=== PATIENT | female | born 1995 ===

== ENCOUNTER 2020-07-20 07:46 | Emergency (ER) | payer OTHER, SELFPAY ==
--- NOTE | ~2020-07-20 | XR_ITS ---
EXAMINATION: XR CHEST CLINICAL INFORMATION: Chest pain and wheezing COMPARISON: None TECHNIQUE: 2 views of the chest were obtained. FINDINGS: No significant abnormality is noted involving the heart, lungs, mediastinum, bony thorax or soft tissues. XR/XR chest 2V IMPRESSION: Unremarkable examination.
[2020-07-20 07:57] VITALS: BP 154/85; PULSE 66; RESP 16; O2SAT 98; BMI 41.1
--- NOTE | 2020-07-20 08:05 | ECG_ITS ---
Test Reason : SOB Blood Pressure : / mmHG Vent. Rate : 053 BPM Atrial Rate : 053 BPM P-R Int : 158 ms QRS Dur : 076 ms QT Int : 406 ms P-R-T Axes : 060 062 039 degrees QTc Int : 380 ms Sinus bradycardia Otherwise normal ECG When compared with ECG of 23-JUL-2018 00:47, No significant change was found Referred By: Trinidad Laguerre Electronically Signed By:VERNON VELA MD
[2020-07-20 08:19] LABS: MANUAL DIFF FLAG NO
[2020-07-20] MEDS: Albuterol Sulfate (0.083%) 2.5 MG/3 ML VIAL.NEB 5 MG INHALE ×2 (08:20→09:32)
[2020-07-20 08:23] VITALS: PULSE 63
[2020-07-20 08:26] LABS: Basophils Percent Auto 0.3 % (0-2); Eosinophils Absolute Auto 0.4 X10*3/uL (0.0-0.4); Eosinophils Percent Auto 3.6 % (0-4); Hematocrit 40.8 % (37-47); Imm Gran Abs Auto 0.03 X10*3/uL (0.00-0.03); Imm Gran Pct Auto 0.3 % (0.0-0.4); Lymphocytes Absolute Auto 1.9 X10*3/uL (1.2-4.9); Lymphocytes Percent Auto 16.4 % (20-40); Mean Corpuscular HGB Conc 34.3 g/dl (31.0-35.0); Mean Corpuscular Hemoglobin 29.7 pg (27.0-33.0); Mean Corpuscular Volume 86.6 fL (80-98); Monocytes Absolute Auto 0.9 X10*3/uL (0.1-1.2); Monocytes Percent Auto 7.5 % (2-11); Neutrophils Absolute Auto 8.5 X10*3/uL (2.0-8.3); Neutrophils Percent Auto 71.9 % (45-73); Platelet Count 261 X10*3/uL (160-400); Red Blood Count 4.71 X10*6/uL (4.20-5.50); Red Cell Distribution Width 14.3 % (11.0-16.0); White Blood Count 11.8 X10*3/uL (4.8-10.8)
[2020-07-20] MEDS: predniSONE 10 MG TABLET 50 MG PO (08:28)
--- NOTE | 2020-07-20 08:40 | ED.GENADULT ---
HPI - General Adult General Chief complaint: Upper Respiratory Symptoms Stated complaint: Shortness of breath Time Seen by Provider: 07/20/20 07:58 Source: patient Mode of arrival: ambulatory Limitations: no limitations History of Present Illness HPI narrative: 24 y/o female with a history of PCOS who presents to the ER with 3 days of SOB, dry cough, & sinus congestion. She reports yesterday having coughing fits to bad she threw up. She states this morning she started getting chest pain and tightness when she took a deep breath and when she coughed. She is short of breath at rest and with exertion. Pain is across her entire chest. She has had hot flashes on/off but denies fevers. She has no abdominal pain, urinary symptoms. No known exposure to COVID and she is not vaccinated yet. MD complaint: SOB and chest pain Onset (ago): day(s) (3) Location: head, face and chest Radiation: non-radiation Severity: moderate Severity scale (1-10): 7 Quality: aching Pain Consistency: constant (with every breath) Relieving factors: none Exacerbating factors: other (coughing, deep breaths) Associated symptoms: chest pain, cough, malaise and nausea/vomiting Treatments prior to arrival: none Related Data Previous Rx's Medication Instructions Recorded albuterol sulfate 1 inh INHALATION QID PRN #6.7 g 07/20/20 azithromycin [Zithromax Z-José Miguel] See Rx Instructions .ROUTE 07/20/20 .COMPLEX #6 tab hydrocodone-homatropine [Hycodan 5 ml PO Q6H PRN #60 ml 07/20/20 (with homatropine)] prednisone 40 mg PO DAILY #10 tab 07/20/20 Allergies Allergy/AdvReac Type Severity Reaction Status Date / Time No Known Allergies Allergy Unverified 10/30/19 16:35 [No Known Allergies*] Review of Systems Review of Systems: Constitutional: No Fever, No Chills ENT/Mouth: No sore throat, + Rhinorrhea, No Swallowing Difficulty Eyes: No Eye Pain, No Swelling, No Redness Cardiovascular: + Chest Pain, + SOB, No Orthopnea, No Edema Respiratory: + Cough, No Sputum, + Wheezing, + dyspnea Gastrointestinal: + Nausea, + Vomiting, No Diarrhea, No abdominal Pain, No Hematochezia, No Melena Genitourinary: No Dysuria, No Urinary Frequency, No Hematuria Musculoskeletal: No joint pain, No Myalgias Skin: No Skin Lesions, No rash Neuro: No Weakness, No Numbness, No Dizziness, + Headache Psych: No Anxiety/Panic, No Depression Heme/Lymph: No Bruising, No Lymphadenopathy Endocrine: No Polyuria, No Polydipsia [facility] Past Medical History Medical History (Updated 07/20/20 @ 11:07 by RIYA Mary) No known health problems Social History Social History Advance Directives: No Advance Directives Information Provided: No Physical Exam Vital Signs: Vital Signs: Last Vital Signs Pulse 70 07/20/20 09:36 Resp 18 07/20/20 09:36 BP 126/80 07/20/20 09:36 Pulse Ox 98 07/20/20 09:36 Body Mass Index 41.1 Appearance: Alert. Oriented X3. No acute distress. Eyes: Pupils equal, round and reactive to light. ENT: Pharynx normal. Neck: Normal inspection. Neck supple. CVS: Normal heart rate and rhythm. Pulses normal. Respiratory: No respiratory distress. Breath sounds with diffuse expiratory wheezing throughout, scattered rhonchi. Abdomen: Soft and nontender. +BS x4 Skin: Skin warm and dry. Normal skin color. Normal skin turgor. No rashes. Extremities: No lower extremity edema. Negative Adalberto's sign. Neuro: Oriented X 3. No motor deficit. No sensory deficit. Course Course Course Narrative: 24 y/o female with history of PCOS presenting with cough, SOB and chest pain. She appears well and is not in any respiratory distress but she is diffusely wheezy. No history of asthma per her report. Will get CXR, COVID swab. EKG and labs. Will give dose of prednisone and albuterol neb. Reevaluation(s) Reevaluation #1: Improved after neb but some wheezing persists. CXR delayed for test. Troponin negative. COVID negative. Reevaluation #2: CXR is clear. Her lung sounds are improved. She feels improved. She is stable for discharge home with treatment for bronchitis. RT provided inhaler education and patient encouraged to f/u with PCP and get PFTs. Medical Decision Making Lab Data Result diagrams: 07/20/20 08:15 07/20/20 08:15 Labs: Lab Results 07/20/20 07/20/20 07/20/20 Range/Units 08:15 08:15 08:15 WBC 11.8 H (4.8-10.8) X10*3/uL RBC 4.71 (4.20-5.50) X10*6/uL Hgb 14.0 (12.0-16.0) g/dl Hct 40.8 (37-47) % MCV 86.6 (80-98) fL MCH 29.7 (27.0-33.0) pg MCHC 34.3 (31.0-35.0) g/dl RDW 14.3 (11.0-16.0) % Plt Count 261 (160-400) X10*3/uL MPV 11.0 (9.4-12.3) fL Immature Gran % (Auto) 0.3 (0.0-0.4) % Neut % (Auto) 71.9 (45-73) % Lymph % (Auto) 16.4 L (20-40) % [place] % (Auto) 7.5 (2-11) % Eos % (Auto) 3.6 (0-4) % Baso % (Auto) 0.3 (0-2) % Lymph # (Auto) 1.9 (1.2-4.9) X10*3/uL [place] # (Auto) 0.9 (0.1-1.2) X10*3/uL Eos # (Auto) 0.4 (0.0-0.4) X10*3/uL Baso # (Auto) 0.0 (0.0-0.2) X10*3/uL Abs Immat Gran (auto) 0.03 (0.00-0.03) X10*3/uL Absolute Neuts (auto) 8.5 H (2.0-8.3) X10*3/uL Absolute Nucleated RBC 0.000 (0.0-0.012) X10*3/uL Nucleated RBC % (auto) 0.0 (0.0-0.2) /100WBC Sodium 138 (135-145) mmol/L Potassium 4.0 (3.3-5.1) mmol/L Chloride 108 (96-108) mmol/L Carbon Dioxide 23 (22-29) mmol/L Anion Gap 11 L (12-20) BUN 13 (9-16) mg/dL Creatinine 0.82 (0.5-1.4) mg/dL Estim Creat Clear Calc 128.6 Estimated GFR > 60 Random Glucose 111 (60-115) mg/dL Calcium 9.4 (8.4-10.2) mg/dL Troponin I High Sens < 3.5 (<3.5-17.0) ng/L Urine Test (NEGATIVE) COVID-19 ([facility]) (Negative) COVID-19 Clin Com 07/20/20 07/20/20 Range/Units 08:27 09:42 WBC (4.8-10.8) X10*3/uL RBC (4.20-5.50) X10*6/uL Hgb (12.0-16.0) g/dl Hct (37-47) % MCV (80-98) fL MCH (27.0-33.0) pg MCHC (31.0-35.0) g/dl RDW (11.0-16.0) % Plt Count (160-400) X10*3/uL MPV (9.4-12.3) fL Immature Gran % (Auto) (0.0-0.4) % Neut % (Auto) (45-73) % Lymph % (Auto) (20-40) % [place] % (Auto) (2-11) % Eos % (Auto) (0-4) % Baso % (Auto) (0-2) % Lymph # (Auto) (1.2-4.9) X10*3/uL [place] # (Auto) (0.1-1.2) X10*3/uL Eos # (Auto) (0.0-0.4) X10*3/uL Baso # (Auto) (0.0-0.2) X10*3/uL Abs Immat Gran (auto) (0.00-0.03) X10*3/uL Absolute Neuts (auto) (2.0-8.3) X10*3/uL Absolute Nucleated RBC (0.0-0.012) X10*3/uL Nucleated RBC % (auto) (0.0-0.2) /100WBC Sodium (135-145) mmol/L Potassium (3.3-5.1) mmol/L Chloride (96-108) mmol/L Carbon Dioxide (22-29) mmol/L Anion Gap (12-20) BUN (9-16) mg/dL Creatinine (0.5-1.4) mg/dL Estim Creat Clear Calc Estimated GFR Random Glucose (60-115) mg/dL Calcium (8.4-10.2) mg/dL Troponin I High Sens (<3.5-17.0) ng/L Urine Test NEGATIVE (NEGATIVE) COVID-19 ([facility]) Negative (Negative) COVID-19 Clin Com See Note ECG Data Attestation: I personally reviewed and interpreted this ECG as follows: Interpretation: Sinus bradycardia, HR 53 bpm, normal ID interval, no ST depressions or elevations Critical Care Time Critical Care Time Attestation: Discharge Plan Discharge Clinical Impression: Bronchitis Patient Disposition: Home, Self-Care Instructions: Acute Bronchitis (ED) Additional Instructions: You lab workup was unremarkable. Your chest x-ray and COVID tests were negative. Take the prescribed medications as directed. Follow up with a primary care provider for follow up. Recommend Pulmonary Function Tests to assess for possible asthma. If your symptoms get worse come back to the ER for further evaluation. Prescriptions: New albuterol sulfate 90 mcg/actuation HFA aerosol inhaler 1 inh inhalation QID PRN (Reason: shortness of breath or wheezing) Qty: 6.7 RF: 0 azithromycin [Zithromax Z-José Miguel] 250 mg tablet See Rx Instructions .ROUTE .COMPLEX Qty: 6 RF: 0 prednisone 20 mg tablet 40 mg PO DAILY Qty: 10 RF: 0 hydrocodone-homatropine [Hycodan (with homatropine)] 5-1.5 mg/5 mL syrup 5 ml PO Q6H PRN (Reason: cough) Qty: 60 RF: 0 Referrals: Rocco Sosa MD [Physician] - 1 week (wheezing)
[2020-07-20 08:43] LABS: Anion Gap 11 (12-20); Blood Urea Nitrogen 13 mg/dL (9-16); Calcium 9.4 mg/dL (8.4-10.2); Carbon Dioxide 23 mmol/L (22-29); Chloride 108 mmol/L (96-108); Creatinine Clr Calc Pharmacy 128.6; Estimated Glomerular Filt Rate > 60; Glucose Random 111 mg/dL (60-115); Sodium 138 mmol/L (135-145)
[2020-07-20 08:49] LABS: Troponin-I High Sensitivity < 3.5 ng/L (<3.5-17.0)
[2020-07-20 09:01] LABS: COVID-19 Test Negative (Negative)
[2020-07-20 09:32] VITALS: PULSE 71; O2SAT 98
[2020-07-20 09:36] VITALS: BP 126/80; PULSE 70; RESP 18; O2SAT 98
[2020-07-20 09:55] LABS: UPreg QC Valid YES; Urine Pregnancy NEGATIVE (NEGATIVE)
[2020-07-20] MEDS: Albuterol Sulfate 90 MCG 8 GM INHALER 2 PUFF INHALE (11:42)
[2020-07-20 11:45] VITALS: PULSE 68; O2SAT 98
== END 2020-07-20 12:00 | disposition home or self-care (01) ==
PROVIDERS: Physician Assistant; Emergency Provider Emergency Medicine
DX: J20.9 Acute bronchitis, unspecified (principal); Z20.822 Contact with and (suspected) exposure to COVID-19
CPT/HCPCS: 36415; 71046; 80048; 81025; 84484; 85025; 87635; 93005; 94640; 94644; 94645; 99284; 99285

== ENCOUNTER → 2020-07-28 09:35 | Outpatient (BNVA) | payer OTHER, SELFPAY | PROVIDERS: Visit Provider Hospitalist | DX: J40 Bronchitis, not specified as acute or chronic (principal); J45.41 Moderate persistent asthma with (acute) exacerbation; R05 Cough | CPT/HCPCS: 96372; J2930 ==

== ENCOUNTER 2022-10-12 08:59 | Emergency (ER) | payer MEDICAID, SELFPAY ==
--- NOTE | ~2022-10-12 | CT_ITS ---
EXAMINATION: CT ABDOMEN AND PELVIS WITH CONTRAST CLINICAL INFORMATION: Right lower quadrant pain. COMPARISON: None available. TECHNIQUE: Multidetector volumetric images were obtained from the superior aspect of the liver through the pubic symphysis following administration 85 mL of Omnipaque 350 intravenous contrast. Sagittal and coronal reformatted images were obtained on the technologist's workstation. Oral contrast: No This CT examination was performed using dose optimization techniques as appropriate, variously including the following: *Automated exposure control *Adjustment of mA and/or kV according to patient size (this includes techniques or standardized protocols for targeted exams where dose is matched to indication/reason for exam; i.e. extremities or head) *Use of iterative reconstruction technique DLP: 855 mGy-cm FINDINGS: LUNG BASES: Peribronchial groundglass opacities in the left lower lobe. LIVER, GALLBLADDER, AND BILIARY TREE: The liver is normal in size and contour. No focal hepatic lesion or biliary ductal dilatation is present. The gallbladder is unremarkable with no evidence of radiopaque gallstones, gallbladder wall thickening, or obvious pericholecystic inflammatory changes. PANCREAS: No ductal dilatation. SPLEEN: Not enlarged. ADRENAL GLANDS: No adrenal mass. KIDNEYS AND URETERS: The kidneys are symmetric in size and enhancement. No hydronephrosis or perinephric stranding. BLADDER: Unremarkable. GASTROINTESTINAL TRACT: Small and large bowel loops are of normal caliber. No small bowel obstruction. Appendix is within normal limits. ABDOMINAL WALL: No significant hernia is appreciated. LYMPH NODES: No bulky abdominal or pelvic lymphadenopathy. VASCULAR: Normal caliber abdominal aorta. PELVIC VISCERA: Please see separately dictated pelvic ultrasound report. OSSEOUS STRUCTURES: No destructive bone lesions. CT/CT abdomen pelvis w IV con IMPRESSION: Peribronchial groundglass opacities in the left lower lobe. This may represent acute infectious or inflammatory pneumonia. Advise clinical correlation. No acute abnormality in the abdomen or pelvis.
--- NOTE | ~2022-10-12 | US_ITS ---
EXAMINATION: US PELVIS CLINICAL INFORMATION: History of PCOS. Right lower quadrant pain. Irregular menses. COMPARISON: 01/31/2019 TECHNIQUE: Ultrasound of the pelvis is performed using both transabdominal and transvaginal transducers along with Doppler. Transvaginal imaging is performed due to inadequate visualization transabdominally. FINDINGS: Uterus: The uterus is anteverted. Uterine echotexture is heterogeneous. The uterus measures 7.1 x 3.1 x 3.8 cm. There are cervical nabothian cysts. The endometrial stripe measures 0.8 cm in thickness. There is a filling defect measuring 0.5 x 0.4 x 0.6 cm. Adnexa: Both ovaries are visualized. There is normal color flow to the adnexa. There is no pelvic ascites or fluid collection. Right ovary measures 4.3 x 2.8 x 2.6 cm. Right ovarian volume measures 16.4 mL. Left ovary measures 3.5 x 2.5 x 3.1 cm. Left ovarian volume measures 14.2 mL. US/US pelvic and transvaginal IMPRESSION: Increased ovarian volume. Focal filling defect within the endometrium measuring 0.5 x 0.4 x 0.6 cm. This could represent a submucosal fibroid versus less likely endometrial polyp.
[2022-10-12 09:03] VITALS: BP 138/80; PULSE 73; RESP 12; TEMP 36.7; O2SAT 94; BMI 39.5
--- NOTE | 2022-10-12 09:14 | ED_ITS ---
HPI - Female Genitourinary General Chief complaint: OB Stated complaint: ovary pain/ lower back/ leg pain Time Seen by Provider: 10/12/22 09:13 Source: patient Mode of arrival: ambulatory Limitations: no limitations History of Present Illness HPI Narrative: 26-year-old female with history of PCOS presents with right lower quadrant abdominal pain/ pelvic pain. Symptoms started several days ago. The pain is constant getting progressively worse. The pain is currently a level 7/10. There is worsening associated with movement, twisting but also can worsen without any inciting event. She has had nausea but no vomiting. She denies any urinary frequency, urgency or dysuria. She denies any vaginal bleeding or discharge. Her menstrual cycles have been a little bit off however, she does have history of PCOS and just stop the NuvaRing. patient denies any fevers or chills. She denies any diarrhea constipation. She denies any history of pain similar to this in the past. Related Data Previous Rx's Medication Instructions Recorded albuterol sulfate 90 mcg/actuation 1 inh inhalation QID PRN shortness 07/20/20 aerosol inhaler of breath or wheezing #6.7 grams azithromycin 250 mg tablet See Rx Instructions PO .COMPLEX #6 07/20/20 (Zithromax Z-José Miguel) tabs hydrocodone-homatropine 5 mg-1.5 5 ml PO Q6H PRN cough #60 mL 07/20/20 mg/5 mL oral syrup (Hycodan (with homatropine)) prednisone 20 mg tablet 40 mg PO DAILY #10 tabs 07/20/20 albuterol sulfate 0.63 mg/3 mL 0.63 mg (3 mL) inhalation QID PRN 07/21/20 solution for nebulization shortness of breath or wheezing #75 mL albuterol sulfate 2.5 mg/3 mL 2.5 mg (3 mL) inhalation Q4H PRN 07/28/20 (0.083 %) solution for nebulization shortness of breath or wheezing 30 days #180 mL doxycycline hyclate 100 mg capsule 100 mg PO BID 10 days #20 caps 07/28/20 prednisone 20 mg tablet 20 mg PO DAILY 10 days #15 tabs 07/28/20 cyclobenzaprine 10 mg tablet 10 mg PO TID PRN muscle spasm #10 08/31/23 tabs meloxicam 15 mg tablet 15 mg PO DAILY #10 tabs 10/12/22 Allergies Allergy/AdvReac Type Severity Reaction Status Date / Time No Known Allergies Allergy Verified 07/28/20 09:59 [No Known Allergies*] Review of Systems Review of Systems: CONSTITUTIONAL: Denies weight loss, fever and chills. HEENT: Denies changes in vision and hearing. RESPIRATORY: Denies SOB and cough. CV: Denies palpitations no CP. GI: + abdominal pain, nausea,- vomiting and diarrhea. : Denies dysuria and urinary frequency. MSK: Denies myalgia and joint pain. SKIN: Denies rash and pruritus. NEUROLOGICAL: Denies headache and syncope. PSYCHIATRIC: Denies recent changes in mood. Denies anxiety and depression. All other ROS are negative unless in HPI PMFSH Past Medical History Medical History Asthma exacerbation Cough No known health problems Social History Social History Substance Use Type: Marijuana Advance Directives: No Advance Directives Information Provided: No Physical Exam Vital Signs: Vital Signs: Last Vital Signs Temp 98.1 F 10/12/22 09:03 Pulse 65 10/12/22 10:53 Resp 15 10/12/22 10:53 BP 131/71 10/12/22 10:53 Pulse Ox 97 10/12/22 10:53 O2 Del Method Room Air 10/12/22 10:53 BMI result Body Mass Index 39.5 GEN: Well developed, no acute distress, alert, oriented HEENT: Normocephalic, atraumatic, normal external ears, nose appears normal, no oropharyngeal edema or exudates Eyes: Normal to appearance Neck: Supple, no lymphadenopathy Respiratory: Talks in complete sentences, no respiratory distress, clear to auscultation bilaterally Cardiovascular: Regular rate and rhythm, no murmurs rubs or gallops Abdomen: Soft, Right lower quadrant tenderness, nondistended, no guarding, no rebound Back: No CVA tenderness Extremities: No clubbing cyanosis or edema Neurologic: No focal neurologic deficits, cranial nerves 2-12 intact, strength is 5/5 bilaterally Skin: No rash Course Course Course Narrative: it is 1134. The workup is complete. Ultrasound identified no large ovarian cyst or torsion. CT scan denied identify any appendicitis or other possible cause of her symptoms. Differential diagnosis at this point could include corinne ropathic versus musculoskeletal pain or functional bowel related issue. At this time, place the patient on anti-inflammatory pain medications, Tylenol and a muscle relaxer. She can follow-up with her primary care provider or OBGYN within the coming days. She can return for any worsening or concerning symptoms. Medications Administered Discontinued Medications Generic Name Dose Route Start Last Admin Trade Name [place] PRN Reason Stop Dose Admin Sodium Chloride 1,000 mls @ 999 mls/hr 10/12/22 09:45 10/12/22 10:02 Ns IV 10/12/22 10:45 999 mls/hr .Q1H1M AISHA Administration Iohexol 100 ml 10/12/22 10:49 10/12/22 10:49 Iohexol 350 Mg/Ml 100 Ml Infus..Btl IV 10/12/22 10:50 85 ml ONCE ONE Administration Ketorolac Tromethamine 15 mg 10/12/22 09:41 10/12/22 10:02 Ketorolac Tromethamine 15 Mg/Ml Vial IVPUSH 10/12/22 09:42 15 mg ONCE ONE Administration Lorazepam 1 mg 10/12/22 11:11 10/12/22 11:16 Lorazepam 1 Mg Tablet PO 10/12/22 11:12 1 mg ONCE ONE Administration Ondansetron HCl 4 mg 10/12/22 09:41 10/12/22 10:02 Ondansetron Hcl 4 Mg/2 Ml Vial IVPUSH 10/12/22 09:42 4 mg ONCE ONE Administration Medical Decision Making Medical Decision Making [facility] Narrative: 26-year-old female presents with right related quadrant abdominal pain. Differential diagnosis includes appendicitis, diverticulitis, colitis, IBD, IBS, torsion, ovarian cyst, epiploic appendagitis, mesenteric adenitis, UTI, pyelonephritis. Examination revealed tenderness in the right lower quadrant without rebound or guarding. There is no CVA tenderness. Will obtain a CT scan to rule out appendicitis. Will obtain an ultrasound to rule out torsion/ovarian cyst. Will provide patient with analgesia in the meantime. Differential Diagnosis Differential Diagnoses: The differential diagnosis associated with the present ation includes ( See above) Admission/Observation Consideration of admission/observation: Escalation of care including admission/observation considered Lab Data [facility] Lab Attestation statement: I reviewed the patient's lab results. 10/12/22 09:58 10/12/22 09:58 Labs: Lab Results 10/12/22 10/12/22 10/12/22 Range/Units 09:58 09:58 10:05 WBC 14.2 H (4.8-10.8) X10*3/uL RBC 5.32 (4.20-5.50) X10*6/uL Hgb 15.9 (12.0-16.0) g/dl Hct 46.0 (37.0-47.0) % MCV 86.5 (80.0-98.0) fL MCH 29.9 (27.0-33.0) pg MCHC 34.6 (31.0-35.0) g/dl RDW 14.5 (11.0-16.0) % Plt Count 321 (160-400) X10*3/uL MPV 10.9 (9.4-12.3) fL Immature Gran % (Auto) 0.4 (0.0-0.4) % Neut % (Auto) 70.8 (45-73) % Lymph % (Auto) 19.6 L (20-40) % [place] % (Auto) 4.9 (2-11) % Eos % (Auto) 3.9 (0-4) % Baso % (Auto) 0.4 (0-2) % Lymph # (Auto) 2.8 (1.2-4.9) X10*3/uL [place] # (Auto) 0.7 (0.1-1.2) X10*3/uL Eos # (Auto) 0.6 H (0.0-0.4) X10*3/uL Baso # (Auto) 0.1 (0.0-0.2) X10*3/uL Abs Immat Gran (auto) 0.05 H (0.00-0.03) X10*3/uL Absolute Neuts (auto) 10.0 H (2.0-8.3) x10*3/uL Absolute Nucleated RBC 0.000 (0.0-0.012) X10*3/uL Nucleated RBC % (auto) 0.0 (0.0-0.2) /100WBC Sodium 139 (135-145) mmol/L Potassium 4.0 (3.3-5.1) mmol/L Chloride 106 (96-108) mmol/L Carbon Dioxide 23 (22-29) mmol/L Anion Gap 14 (12-20) BUN 14 (9-16) mg/dL Creatinine 0.85 (0.5-1.4) mg/dL Estim Creat Clear Calc 119.0 Estimated GFR > 60 Random Glucose 104 (60-115) mg/dL Calcium 9.9 (8.4-10.2) mg/dL Total Bilirubin 0.5 (0.0-1.0) mg/dL AST 19 (5-31) U/L ALT 17 (0-31) U/L Alkaline Phosphatase 110 (39-117) U/L Total Protein 7.8 (6.5-8.0) g/dL Albumin 4.3 (3.5-5.0) g/dL Urine Color Yellow Urine Appearance Hazy Urine pH 6.0 (5.0-9.0) Ur Specific [place] 1.020 (1.005-1.025) Urine Protein Negative (Neg-Trace) mg/dL Urine Glucose (UA) Negative (Negative) mg/dL Urine Ketones Negative (Negative) mg/dL Urine Blood Negative (Negative) Urine Nitrite Negative (Negative) Ur Leukocyte Esterase Negative (Negative) Urine Test (NEGATIVE) 10/12/22 Range/Units 10:05 WBC (4.8-10.8) X10*3/uL RBC (4.20-5.50) X10*6/uL Hgb (12.0-16.0) g/dl Hct (37.0-47.0) % MCV (80.0-98.0) fL MCH (27.0-33.0) pg MCHC (31.0-35.0) g/dl RDW (11.0-16.0) % Plt Count (160-400) X10*3/uL MPV (9.4-12.3) fL Immature Gran % (Auto) (0.0-0.4) % Neut % (Auto) (45-73) % Lymph % (Auto) (20-40) % [place] % (Auto) (2-11) % Eos % (Auto) (0-4) % Baso % (Auto) (0-2) % Lymph # (Auto) (1.2-4.9) X10*3/uL [place] # (Auto) (0.1-1.2) X10*3/uL Eos # (Auto) (0.0-0.4) X10*3/uL Baso # (Auto) (0.0-0.2) X10*3/uL Abs Immat Gran (auto) (0.00-0.03) X10*3/uL Absolute Neuts (auto) (2.0-8.3) x10*3/uL Absolute Nucleated RBC (0.0-0.012) X10*3/uL Nucleated RBC % (auto) (0.0-0.2) /100WBC Sodium (135-145) mmol/L Potassium (3.3-5.1) mmol/L Chloride (96-108) mmol/L Carbon Dioxide (22-29) mmol/L Anion Gap (12-20) BUN (9-16) mg/dL Creatinine (0.5-1.4) mg/dL Estim Creat Clear Calc Estimated GFR Random Glucose (60-115) mg/dL Calcium (8.4-10.2) mg/dL Total Bilirubin (0.0-1.0) mg/dL AST (5-31) U/L ALT (0-31) U/L Alkaline Phosphatase (39-117) U/L Total Protein (6.5-8.0) g/dL Albumin (3.5-5.0) g/dL Urine Color Urine Appearance Urine pH (5.0-9.0) Ur Specific [place] (1.005-1.025) Urine Protein (Neg-Trace) mg/dL Urine Glucose (UA) (Negative) mg/dL Urine Ketones (Negative) mg/dL Urine Blood (Negative) Urine Nitrite (Negative) Ur Leukocyte Esterase (Negative) Urine Test NEGATIVE (NEGATIVE) Independent Interpretation I performed an independent interpretation of an: Ultrasound ( pelvis: No t orsion) and CT Scan ( abdomen pelvis: No acute findings) Radiology Impression Discussion of test interpretation with radiology: I have reviewed the ra diologist's reading. Radiologist Impression: US/US pelvic and transvaginal IMPRESSION: Increased ovarian volume. ? Focal filling defect within the endometrium measuring 0.5 x 0.4 x 0.6 cm. This could represent a submucosal fibroid versus less likely endometrial polyp. Dictated By: Terry Ivan MD Signed By: <Electronically signed by Terry Ivan MD in [facility]> 10/12/[address]/CT abdomen pelvis w IV con IMPRESSION: Peribronchial groundglass opacities in the left lower lobe. This may represent acute infectious or inflammatory pneumonia. Advise clinical correlation. ? No acute abnormality in the abdomen or pelvis. Dictated By: Terry Ivan MD Signed By: <Electronically signed by Terry Ivan MD in [facility]> 10/12/22 1113 Prescription Management I considered prescription management with: Pain Medication and Antibiotic Chronic Conditions Patient?s care impacted by: Other ( PCOS) Discharge Plan Discharge Clinical Impression: Right lower quadrant abdominal pain Patient Disposition: Home, Self-Care Instructions: Abdominal Pain (ED), Pelvic Pain (ED) Prescriptions: New meloxicam 15 mg tablet 15 mg PO DAILY Qty: 10 0RF cyclobenzaprine 10 mg tablet 10 mg PO TID PRN (Reason: muscle spasm) Qty: 10 0RF No Action albuterol sulfate 90 mcg/actuation HFA aerosol inhaler 1 inh inhalation QID PRN (Reason: shortness of breath or wheezing) Qty: 6.7 0RF azithromycin [Zithromax Z-José Miguel] 250 mg tablet See Rx Instructions .ROUTE .COMPLEX Qty: 6 0RF Rx Instructions: take 500 mg today (day 1), then 250 mg for 4 days (days 2-5) prednisone 20 mg tablet 40 mg PO DAILY Qty: 10 0RF hydrocodone-homatropine [Hycodan (with homatropine)] 5-1.5 mg/5 mL syrup 5 ml PO Q6H PRN (Reason: cough) Qty: 60 0RF albuterol sulfate 0.63 mg/3 mL solution for nebulization 0.63 mg inhalation QID PRN (Reason: shortness of breath or wheezing) Qty: 75 0RF albuterol sulfate 2.5 mg /3 mL (0.083 %) solution for nebulization 2.5 mg inhalation Q4H PRN (Reason: shortness of breath or wheezing) 30 Days Qty: 180 11RF prednisone 20 mg tablet 20 mg PO DAILY 10 Days Qty: 15 0RF Rx Instructions: Take 2 tabs daily x 5 days, then 1 tablet daily x 5 days doxycycline hyclate 100 mg capsule 100 mg PO BID 10 Days Qty: 20 0RF Referrals: Physician,Unknown J [Primary Care Provider] - (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
[2022-10-12 10:02] LABS: MANUAL DIFF FLAG NO
[2022-10-12] MEDS: Ketorolac Tromethamine 15 MG/ML VIAL IVPUSH (10:02)
[2022-10-12] MEDS: ondansetron HCL 4 MG/2 ML VIAL IVPUSH (10:02)
[2022-10-12] MEDS: 0.9 % Sodium Chloride 1,000 ML 999 ML IV (10:02)
[2022-10-12 10:05] LABS: Basophils Absolute Auto 0.1 X10*3/uL (0.0-0.2); Basophils Percent Auto 0.4 % (0-2); Eosinophils Absolute Auto 0.6 X10*3/uL (0.0-0.4); Eosinophils Percent Auto 3.9 % (0-4); Hemoglobin 15.9 g/dl (12.0-16.0); Imm Gran Abs Auto 0.05 X10*3/uL (0.00-0.03); Imm Gran Pct Auto 0.4 % (0.0-0.4); Lymphocytes Absolute Auto 2.8 X10*3/uL (1.2-4.9); Lymphocytes Percent Auto 19.6 % (20-40); Mean Corpuscular HGB Conc 34.6 g/dl (31.0-35.0); Mean Corpuscular Hemoglobin 29.9 pg (27.0-33.0); Mean Corpuscular Volume 86.5 fL (80.0-98.0); Mean Platelet Volume 10.9 fL (9.4-12.3); Monocytes Absolute Auto 0.7 X10*3/uL (0.1-1.2); Monocytes Percent Auto 4.9 % (2-11); Neutrophils Percent Auto 70.8 % (45-73); Platelet Count 321 X10*3/uL (160-400); Red Blood Count 5.32 X10*6/uL (4.20-5.50); Red Cell Distribution Width 14.5 % (11.0-16.0); White Blood Count 14.2 X10*3/uL (4.8-10.8)
[2022-10-12 10:17] LABS: Alanine Aminotransferase 17 U/L (0-31); Albumin Level 4.3 g/dL (3.5-5.0); Alkaline Phosphatase 110 U/L (39-117); Anion Gap 14 (12-20); Aspartate Amino Transferase 19 U/L (5-31); Bilirubin Total 0.5 mg/dL (0.0-1.0); Blood Urea Nitrogen 14 mg/dL (9-16); Calcium 9.9 mg/dL (8.4-10.2); Carbon Dioxide 23 mmol/L (22-29); Chloride 106 mmol/L (96-108); Estimated Glomerular Filt Rate > 60; Glucose Random 104 mg/dL (60-115); Sodium 139 mmol/L (135-145); Total Protein 7.8 g/dL (6.5-8.0)
[2022-10-12 10:18] LABS: Appearance Urine Hazy; Color Urine Yellow; Glucose Urine UA Negative (Negative); Leukocyte Esterase Urine Negative (Negative); Nitrite Urine Negative (Negative); Urine Blood Negative (Negative); Urine Ketones Negative (Negative); Urine Protein Negative (Neg-Trace)
[2022-10-12 10:19] LABS: UPreg QC Valid YES; Urine Pregnancy NEGATIVE (NEGATIVE)
[2022-10-12] MEDS: iohexoL 350 MG/ML 100 ML INFUS..BTL IV (10:49)
[2022-10-12 10:53] VITALS: BP 131/71; PULSE 65; RESP 15; O2SAT 97
[2022-10-12] MEDS: LORazepam 1 MG TABLET PO (11:16)
[2022-10-12 12:26] VITALS: BP 133/86; PULSE 75; RESP 15; O2SAT 98
== END 2022-10-12 12:27 | disposition home or self-care (01) ==
PROVIDERS: Emergency Provider Emergency Medicine
DX: R10.31 Right lower quadrant pain (principal); Z79.899 Other long term (current) drug therapy
CPT/HCPCS: 36415; 74177; 76830; 76856; 80053; 81003; 81025; 85025; 96374; 96375; 99284; J1885; J2405; Q9967

== ENCOUNTER 2022-10-28 08:10 | Emergency (ER) | payer MEDICAID, SELFPAY ==
--- NOTE | ~2022-10-28 | XR_ITS ---
EXAMINATION: XR CHEST CLINICAL INFORMATION: Cough COMPARISON: X-ray 07/20/2020 TECHNIQUE: Frontal view of the chest was obtained. FINDINGS: The cardiomediastinal silhouette is within normal limits. The lungs are well expanded. There is no focal consolidation, edema, or effusion. No pneumothorax. No acute osseous abnormality. XR/XR chest 1V IMPRESSION: No acute cardiopulmonary findings seen.
[2022-10-28 08:15] VITALS: BP 138/75; PULSE 80; RESP 18; TEMP 36.8; O2SAT 94; BMI 39.5
[2022-10-28 09:09] LABS: COVID-19 Test Negative (Negative); IDNOW Serial# 08D9AD1C; IDNOW Serial# BCCEAD1C; Influenza A Negative (Negative)
--- NOTE | 2022-10-28 09:31 | ED_ITS ---
HPI - SOB/Dyspnea General Chief Complaint: Dyspnea Stated Complaint: diff breathing Time Seen by Provider: 10/28/22 08:41 Source: patient Mode of arrival: ambulatory History of Present Illness HPI Narrative: 26-year-old female with history of asthma, bronchitis, and continues to smoke presents with 2 weeks of worsening chest tightness, shortness of breath, inability to mobilize phlegm but denies fevers or chills. Related Data Previous Rx's Medication Instructions Recorded albuterol sulfate 90 mcg/actuation 1 inh inhalation QID PRN shortness 07/20/20 aerosol inhaler of breath or wheezing #6.7 grams azithromycin 250 mg tablet See Rx Instructions PO .COMPLEX #6 07/20/20 (Zithromax Z-José Miguel) tabs hydrocodone-homatropine 5 mg-1.5 5 ml PO Q6H PRN cough #60 mL 07/20/20 mg/5 mL oral syrup (Hycodan (with homatropine)) prednisone 20 mg tablet 40 mg (2 x 20 mg) PO DAILY #10 tabs 07/20/20 albuterol sulfate 0.63 mg/3 mL 0.63 mg (3 mL) inhalation QID PRN 07/21/20 solution for nebulization shortness of breath or wheezing #75 mL albuterol sulfate 2.5 mg/3 mL 2.5 mg (3 mL) inhalation Q4H PRN 07/28/20 (0.083 %) solution for nebulization shortness of breath or wheezing 30 days #180 mL doxycycline hyclate 100 mg capsule 100 mg PO BID 10 days #20 caps 07/28/20 prednisone 20 mg tablet 20 mg PO DAILY 10 days #15 tabs 07/28/20 cyclobenzaprine 10 mg tablet 10 mg PO TID PRN muscle spasm #10 10/12/22 tabs meloxicam 15 mg tablet 15 mg PO DAILY #10 tabs 10/12/22 prednisone 50 mg tablet 50 mg PO DAILY 4 days #4 tabs 10/28/22 Allergies Allergy/AdvReac Type Severity Reaction Status Date / Time No Known Allergies Allergy Verified 07/28/20 09:59 [No Known Allergies*] Review of Systems 2 Review of Systems: Pertinent positives and negatives as stated in HPI [facility] Past Medical History Source: nursing notes reviewed Medical History Cough Asthma exacerbation No known health problems Social History Social History Substance Use Type: Marijuana Advance Directives: No Physical Exam 2 Vital Signs: Vital Signs: Last Vital Signs Temp 97.8 F 10/28/22 10:44 Pulse 98 10/28/22 11:01 Resp 18 10/28/22 11:01 BP 149/73 H 10/28/22 10:44 Pulse Ox 95 10/28/22 10:44 O2 Del Method Room Air 10/28/22 10:44 BMI result Body Mass Index 39.5 VITAL SIGNS: Reviewed. GENERAL: Well developed, well nourished, in no acute distress. HEAD: Normocephalic/atraumatic EYES: PERRLA, EOMI EARS: Ext canals without abnormality NOSE: Nares patent bilateral OROPHARYNX: no oral lesions noted, posterior pharynx clear NECK: Supple, no adenopathy LUNGS: Decreased breath sounds bilaterally with trace expiratory wheeze, coughing, and mild tachypnea. SpO2<94> CARDIOVASCULAR: Regular rate and rhythm without noted murmurs ABDOMEN: Soft, non-tender, non-distended with bowel sounds. MUSCULOSKELETAL: No tenderness, deformities, or effusions noted on gross inspection. EXTREMITIES: No cyanosis, clubbing or edema. SKIN: Inspection of the skin reveals no rashes NEUROLOGIC: Alert and oriented x 4. Strength and sensation to light touch were grossly intact x 4. Medications Administered Discontinued Medications Generic Name Dose Route Start Last Admin Trade Name Freq PRN Reason Stop Dose Admin Albuterol Sulfate 2.5 mg/ 5 mg 10/28/22 09:44 10/28/22 09:49 Albuterol Sulfate 2.5 mg INHALE 10/28/22 09:45 5 mg ONCE ONE Administration Albuterol Sulfate 2.5 mg/ 5 mg 10/28/22 10:57 10/28/22 11:00 Albuterol Sulfate 2.5 mg INHALE 10/28/22 10:58 5 mg ONCE ONE Administration Methylprednisolone Sodium Succinate 125 mg 10/28/22 09:34 10/28/22 10:07 Methylprednisolone Sod Succ 125 Mg/2 Ml Vial IVPUSH 10/28/22 09:35 125 mg ONCE ONE Administration Medical Decision Making Medical Decision Making MDM Narrative: 26-year-old female with history and clinical presentation, DDX: Asthma, bronchitis, viral illness. I reviewed all investigations, patient received 2 5 mg albuterol treatments via the ED protocol, patient also receives steroids and review of viral testing is negative for COVID-19 or influenza. Patient has significantly improved and will be discharged on a short course of steroids as well as given a flutter valve for improved coughing up of phlegm. Hematologic indices are significant for chronically elevated leukocytosis but no left shift and no anemia or thrombocytopenia. Chemistry is indices are grossly within normal limits there is no evidence of ZOYA electrolyte/liver enzyme abnormalities. Chest x-ray negative for infiltrate and otherwise my interpretation is in agreement with radiology's impression. My interpretation is that patient has had combination of asthma/bronchitis. Differential Diagnosis Differential Diagnoses: The differential diagnosis associated with the presentation includes Please see the discussion above Admission/Observation Consideration of admission/observation: Escalation of care including admission/observation considered Please see the discussion above Lab Data MDM Lab Attestation statement: I reviewed the patient's lab results. Please see the discussion above 10/28/22 10:03 10/28/22 10:03 Labs: Lab Results 10/28/22 10/28/22 Range/Units 08:22 10:03 WBC 13.3 H (4.8-10.8) X10*3/uL RBC 5.10 (4.20-5.50) X10*6/uL Hgb 15.3 (12.0-16.0) g/dl Hct 44.3 (37.0-47.0) % MCV 86.9 (80.0-98.0) fL MCH 30.0 (27.0-33.0) pg MCHC 34.5 (31.0-35.0) g/dl RDW 14.6 (11.0-16.0) % Plt Count 302 (160-400) X10*3/uL MPV 10.7 (9.4-12.3) fL Immature Gran % (Auto) 0.4 (0.0-0.4) % Neut % (Auto) 65.1 (45-73) % Lymph % (Auto) 22.2 (20-40) % [place] % (Auto) 6.6 (2-11) % Eos % (Auto) 5.3 H (0-4) % Baso % (Auto) 0.4 (0-2) % Lymph # (Auto) 3.0 (1.2-4.9) X10*3/uL [place] # (Auto) 0.9 (0.1-1.2) X10*3/uL Eos # (Auto) 0.7 H (0.0-0.4) X10*3/uL Baso # (Auto) 0.1 (0.0-0.2) X10*3/uL Abs Immat Gran (auto) 0.05 H (0.00-0.03) X10*3/uL Absolute Neuts (auto) 8.7 H (2.0-8.3) x10*3/uL Absolute Nucleated RBC 0.000 (0.0-0.012) X10*3/uL Nucleated RBC % (auto) 0.0 (0.0-0.2) /100WBC Sodium 139 (135-145) mmol/L Potassium 4.5 (3.3-5.1) mmol/L Chloride 107 (96-108) mmol/L Carbon Dioxide 25 (22-29) mmol/L Anion Gap 12 (12-20) BUN 11 (9-16) mg/dL Creatinine 0.81 (0.5-1.4) mg/dL Estim Creat Clear Calc 125.0 Estimated GFR > 60 Random Glucose 102 (60-115) mg/dL Calcium 9.8 (8.4-10.2) mg/dL Total Bilirubin 0.7 (0.0-1.0) mg/dL AST 17 (5-31) U/L ALT 17 (0-31) U/L Alkaline Phosphatase 110 (39-117) U/L Total Protein 7.4 (6.5-8.0) g/dL Albumin 4.2 (3.5-5.0) g/dL COVID-19 (LITZY) Negative (Negative) COVID-19 Clin Com See Note Influenza Type A (SHABANA) Negative (Negative) Influenza Type B (SHABANA) Negative (Negative) Influenza A & B Note See Note Radiology Impression Discussion of test interpretation with radiology: I have reviewed the radiologist's reading. Radiologist Impression: Please see the discussion above External Record Review External record reviewed: Outpatient record, Prior outpatient labs and Prior outpatient radiology Chronic Conditions Patient?s care impacted by: Other Asthma Critical Care Time Critical Care Time Critical Care Time: Yes Total Critical Care Time: 30 Attestation: I personally attest to this time spent taking care of the patient. Discharge Plan Discharge Clinical Impression: Asthma exacerbation, Bronchitis Patient Disposition: Home, Self-Care Instructions: Asthma (ED), Chronic Bronchitis (ED) Additional Instructions: 1. Take all medications as prescribed. 2. Please the course of steroids as provided. 3. Follow-up with your or nurse manager and primary care doctor on Sunday morning. Return to the ER for any worsening symptoms. Prescriptions: New prednisone 50 mg tablet 50 mg PO DAILY 4 Days Qty: 4 0RF No Action albuterol sulfate 90 mcg/actuation HFA aerosol inhaler 1 inh inhalation QID PRN (Reason: shortness of breath or wheezing) Qty: 6.7 0RF azithromycin [Zithromax Z-José Miguel] 250 mg tablet See Rx Instructions .ROUTE .COMPLEX Qty: 6 0RF Rx Instructions: take 500 mg today (day 1), then 250 mg for 4 days (days 2-5) prednisone 20 mg tablet 40 mg PO DAILY Qty: 10 0RF hydrocodone-homatropine [Hycodan (with homatropine)] 5-1.5 mg/5 mL syrup 5 ml PO Q6H PRN (Reason: cough) Qty: 60 0RF albuterol sulfate 0.63 mg/3 mL solution for nebulization 0.63 mg inhalation QID PRN (Reason: shortness of breath or wheezing) Qty: 75 0RF meloxicam 15 mg tablet 15 mg PO DAILY Qty: 10 0RF cyclobenzaprine 10 mg tablet 10 mg PO TID PRN (Reason: muscle spasm) Qty: 10 0RF albuterol sulfate 2.5 mg /3 mL (0.083 %) solution for nebulization 2.5 mg inhalation Q4H PRN (Reason: shortness of breath or wheezing) 30 Days Qty: 180 11RF prednisone 20 mg tablet 20 mg PO DAILY 10 Days Qty: 15 0RF Rx Instructions: Take 2 tabs daily x 5 days, then 1 tablet daily x 5 days doxycycline hyclate 100 mg capsule 100 mg PO BID 10 Days Qty: 20 0RF
[2022-10-28] MEDS: Albuterol Sulfate 2.5 MG, Albuterol Sulfate (0.083%) 2.5 MG 5 MG INHALE ×2 (09:49→11:00)
[2022-10-28 09:52] VITALS: PULSE 76; RESP 17; O2SAT 96
[2022-10-28 10:00] LABS: Influenza B2 Negative (Negative)
[2022-10-28] MEDS: methylPREDNISolone Sod Succ 125 MG/2 ML VIAL IVPUSH (10:07)
[2022-10-28 10:08] LABS: MANUAL DIFF FLAG NO
[2022-10-28 10:12] LABS: Basophils Absolute Auto 0.1 X10*3/uL (0.0-0.2); Basophils Percent Auto 0.4 % (0-2); Eosinophils Absolute Auto 0.7 X10*3/uL (0.0-0.4); Eosinophils Percent Auto 5.3 % (0-4); Hematocrit 44.3 % (37.0-47.0); Hemoglobin 15.3 g/dl (12.0-16.0); Imm Gran Abs Auto 0.05 X10*3/uL (0.00-0.03); Imm Gran Pct Auto 0.4 % (0.0-0.4); Lymphocytes Percent Auto 22.2 % (20-40); Mean Corpuscular HGB Conc 34.5 g/dl (31.0-35.0); Mean Corpuscular Volume 86.9 fL (80.0-98.0); Mean Platelet Volume 10.7 fL (9.4-12.3); Monocytes Absolute Auto 0.9 X10*3/uL (0.1-1.2); Monocytes Percent Auto 6.6 % (2-11); Neutrophils Absolute Auto 8.7 x10*3/uL (2.0-8.3); Neutrophils Percent Auto 65.1 % (45-73); Platelet Count 302 X10*3/uL (160-400); Red Cell Distribution Width 14.6 % (11.0-16.0); White Blood Count 13.3 X10*3/uL (4.8-10.8)
[2022-10-28 10:22] LABS: Alanine Aminotransferase 17 U/L (0-31); Albumin Level 4.2 g/dL (3.5-5.0); Alkaline Phosphatase 110 U/L (39-117); Anion Gap 12 (12-20); Aspartate Amino Transferase 17 U/L (5-31); Bilirubin Total 0.7 mg/dL (0.0-1.0); Blood Urea Nitrogen 11 mg/dL (9-16); Calcium 9.8 mg/dL (8.4-10.2); Carbon Dioxide 25 mmol/L (22-29); Chloride 107 mmol/L (96-108); Estimated Glomerular Filt Rate > 60; Glucose Random 102 mg/dL (60-115); Potassium 4.5 mmol/L (3.3-5.1); Sodium 139 mmol/L (135-145); Total Protein 7.4 g/dL (6.5-8.0)
[2022-10-28 10:44] VITALS: BP 149/73; PULSE 91; RESP 18; TEMP 36.6; O2SAT 95
--- NOTE | 2022-10-28 10:46 | PC.NURSE ---
iv established, labs drawn and sent. reporting improvement after medications
[2022-10-28 11:01] VITALS: PULSE 98; RESP 18; O2SAT 93
== END 2022-10-28 13:18 | disposition home or self-care (01) ==
PROVIDERS: Emergency Provider Student in an Organized Health Care Education/Training Program
DX: J40 Bronchitis, not specified as acute or chronic (principal); Z20.828 Contact with and (suspected) exposure to other viral communicable diseases
CPT/HCPCS: 36415; 71045; 80053; 85025; 87502; 87635; 94640; 96374; 99284; 99285; J2930

== ENCOUNTER 2023-05-03 20:52 | Emergency (ER) | payer MEDICAID, SELFPAY ==
--- NOTE | ~2023-05-03 | XR_ITS ---
EXAMINATION: XR CHEST CLINICAL INFORMATION: Cough and chest pain COMPARISON: 10/28/2022 TECHNIQUE: Frontal view of the chest was obtained. FINDINGS: No significant abnormality is noted involving the heart, lungs, mediastinum, bony thorax or soft tissues. XR/XR chest 1V IMPRESSION: Unremarkable examination.
--- NOTE | 2023-05-03 20:55 | ECG_ITS ---
Test Reason : DYSPNEA Blood Pressure : / mmHG Vent. Rate : 089 BPM Atrial Rate : 089 BPM P-R Int : 142 ms QRS Dur : 072 ms QT Int : 356 ms P-R-T Axes : 073 074 059 degrees QTc Int : 433 ms Normal sinus rhythm with sinus arrhythmia Normal ECG When compared with ECG of 20-JUL-2020 08:20, Vent. rate has increased BY 36 BPM Referred By: Jarvis Curiel Electronically Signed By:NITA MULLER
--- NOTE | 2023-05-03 20:56 | ED_ITS ---
HPI - General Adult General Chief complaint: Dyspnea Stated complaint: sob,chest pain Time Seen by Provider: 05/03/23 21:11 Source: patient and family Mode of arrival: ambulatory History of Present Illness HPI narrative: 27-year-old female with history of asthma after having COVID-19, patient was just on a course of systemic steroids that ended yesterday and states that she has had increased worsening shortness of breath, states she was diagnosed with bronchitis this past Sunday. Denies any fevers or chills. Related Data Previous Rx's Medication Instructions Recorded albuterol sulfate 90 mcg/actuation 1 inh inhalation QID PRN shortness 07/20/20 aerosol inhaler of breath or wheezing #6.7 grams azithromycin 250 mg tablet See Rx Instructions PO .COMPLEX #6 07/20/20 (Zithromax Z-José Miguel) tabs hydrocodone-homatropine 5 mg-1.5 5 ml PO Q6H PRN cough #60 mL 07/20/20 mg/5 mL oral syrup (Hycodan (with homatropine)) prednisone 20 mg tablet 40 mg (2 x 20 mg) PO DAILY #10 tabs 07/20/20 albuterol sulfate 0.63 mg/3 mL 0.63 mg (3 mL) inhalation QID PRN 07/21/20 solution for nebulization shortness of breath or wheezing #75 mL albuterol sulfate 2.5 mg/3 mL 2.5 mg (3 mL) inhalation Q4H PRN 07/28/20 (0.083 %) solution for nebulization shortness of breath or wheezing 30 days #180 mL doxycycline hyclate 100 mg capsule 100 mg PO BID 10 days #20 caps 07/28/20 prednisone 20 mg tablet 20 mg PO DAILY 10 days #15 tabs 07/28/20 cyclobenzaprine 10 mg tablet 10 mg PO TID PRN muscle spasm #10 10/12/22 tabs meloxicam 15 mg tablet 15 mg PO DAILY #10 tabs 10/12/22 prednisone 50 mg tablet 50 mg PO DAILY 4 days #4 tabs 10/28/22 Allergies Allergy/AdvReac Type Severity Reaction Status Date / Time No Known Allergies Allergy Verified 05/03/23 20:56 [No Known Allergies*] Review of Systems Review of Systems: Pertinent positives and negatives as stated in HPI [facility] Past Medical History Source: nursing notes reviewed Medical History Cough Asthma exacerbation No known health problems Social History Social History Substance Use Type: Marijuana Advance Directives: No Advance Directives Information Provided: No Physical Exam ED Vital Signs: Vital Signs - 24 hr 05/03/23 20:57 05/03/23 21:46 05/03/23 22:07 Temperature Pulse Rate 84 86 86 Respiratory Rate 24 H 18 18 Blood Pressure 177/98 H Pulse Oximetry 92 Oxygen Delivery Method Room Air 05/03/23 22:21 Temperature 98.4 F Pulse Rate 103 H Respiratory Rate 20 Blood Pressure 141/83 H Pulse Oximetry 96 Oxygen Delivery Method Room Air BMI result Body Mass Index 39.5 VITAL SIGNS: Reviewed. GENERAL: Well developed, well nourished, in no acute distress. HEAD: Normocephalic/atraumatic EYES: PERRLA, EOMI EARS: Ext canals without abnormality NOSE: Nares patent bilateral OROPHARYNX: no oral lesions noted, posterior pharynx clear NECK: Supple, no adenopathy LUNGS: Inspiratory effort, decreased breath sounds bilaterally with expiratory wheeze, no tachypnea SpO2<92> CARDIOVASCULAR: Regular rate and rhythm without noted murmurs ABDOMEN: Soft, non-tender, non-distended with bowel sounds. MUSCULOSKELETAL: No tenderness, deformities, or effusions noted on gross inspection. EXTREMITIES: No cyanosis, clubbing or edema. SKIN: Inspection of the skin reveals no rashes NEUROLOGIC: Alert and oriented x 4. Strength and sensation to light touch were grossly intact x 4. Course Course Course Narrative: This is an RME: Additional HPI, ROS, PE not included below will be deferred to primary provider. 27-year-old female history of asthma presents with chest pain, shortness of breath for over a week recently on prednisone finished yesterday. Patient is saturating 91% with ambulation, evident increased respiratory effort. Auditory wheezing Plan at this time will try to get a bed in the department. Medications Administered Discontinued Medications Generic Name Dose Route Start Last Admin Trade Name Freq PRN Reason Stop Dose Admin Albuterol Sulfate 2.5 mg/ 5 mg 05/03/23 21:41 05/03/23 21:45 Albuterol Sulfate 2.5 mg INHALE 05/03/23 21:42 5 mg ONCE ONE Administration Albuterol Sulfate 7.5 mg/ 10 mg 05/03/23 22:01 05/03/23 22:06 Albuterol Sulfate 2.5 mg INHALE 05/03/23 22:02 10 mg ONCE ONE Administration Magnesium Sulfate 2 gm in 50 mls @ 150 mls/hr 05/03/23 21:20 05/03/23 22:20 Magnesium Sulfate/H2o IV 05/03/23 21:39 150 mls/hr ONCE ONE Administration Medical Decision Making Medical Decision Making MDM Narrative: 27-year-old female with history and clinical presentation, DDX: asthma, likely chronic airway disease as patient and family report that patient never had a diagnosis of asthma until she was sick with COVID. I did discuss with the patient and her family at bedside that she needs to pursue follow-up with primary care doctor and a discussion for maintenance inhaler and if needed a referral to a cigar sorter for further evaluation. On re-evaluation patient states that she is feeling much improved, she will not be placed on an additional course of steroids, she did receive magnesium sulfate as well as ED prone protocol. Oxygenation has significantly improved and she is otherwise discharged with strict recommendations to follow up with primary care doctor and get started on a maintenance inhaler. Chest x-ray negative for infiltrate or evidence of venous congestion. Differential Diagnosis Differential Diagnoses: The differential diagnosis associated with the presentation includes Please see the discussion above Admission/Observation Consideration of admission/observation: Escalation of care including admission/observation considered Please see the discussion above Independent Interpretation I performed an independent interpretation of an: EKG Interpretation: Normal sinus rhythm, HR-89, no STEMI, MN/QRS/QTC is within normal limits. Radiology Impression Discussion of test interpretation with radiology: I have reviewed the radiologist's reading. Radiologist Impression: Please see the discussion External Record Review External record reviewed: Outpatient record, Prior outpatient labs and Prior outpatient radiology Chronic Conditions Patient?s care impacted by: Other Asthma Critical Care Time Critical Care Time Critical Care Time: Yes Total Critical Care Time: 45 Attestation: I personally attest to this time spent taking care of the patient. Discharge Plan Discharge Clinical Impression: Asthma exacerbation Patient Disposition: Home, Self-Care Instructions: Asthma (ED) Additional Instructions: Please follow-up with primary care doctor by calling the office in the morning to set up an appointment for re-evaluation further outpatient management. Do not hesitate to return to the emergency room for any worsening of your symptoms. Prescriptions: No Action albuterol sulfate 90 mcg/actuation HFA aerosol inhaler 1 inh inhalation QID PRN (Reason: shortness of breath or wheezing) Qty: 6.7 0RF azithromycin [Zithromax Z-José Miguel] 250 mg tablet See Rx Instructions .ROUTE .COMPLEX Qty: 6 0RF Rx Instructions: take 500 mg today (day 1), then 250 mg for 4 days (days 2-5) prednisone 20 mg tablet 40 mg PO DAILY Qty: 10 0RF hydrocodone-homatropine [Hycodan (with homatropine)] 5-1.5 mg/5 mL syrup 5 ml PO Q6H PRN (Reason: cough) Qty: 60 0RF albuterol sulfate 0.63 mg/3 mL solution for nebulization 0.63 mg inhalation QID PRN (Reason: shortness of breath or wheezing) Qty: 75 0RF meloxicam 15 mg tablet 15 mg PO DAILY Qty: 10 0RF cyclobenzaprine 10 mg tablet 10 mg PO TID PRN (Reason: muscle spasm) Qty: 10 0RF prednisone 50 mg tablet 50 mg PO DAILY 4 Days Qty: 4 0RF albuterol sulfate 2.5 mg /3 mL (0.083 %) solution for nebulization 2.5 mg inhalation Q4H PRN (Reason: shortness of breath or wheezing) 30 Days Qty: 180 11RF prednisone 20 mg tablet 20 mg PO DAILY 10 Days Qty: 15 0RF Rx Instructions: Take 2 tabs daily x 5 days, then 1 tablet daily x 5 days doxycycline hyclate 100 mg capsule 100 mg PO BID 10 Days Qty: 20 0RF
[2023-05-03 20:57] VITALS: BP 177/98; PULSE 84; RESP 24; O2SAT 92; BMI 39.5
--- NOTE | 2023-05-03 21:39 | MHC.EDTECH ---
Upon Dr. Ray request at this time no lab work to be done on patient.
[2023-05-03] MEDS: Albuterol Sulfate 2.5 MG, Albuterol Sulfate (0.083%) 2.5 MG 5 MG INHALE (21:45)
[2023-05-03 21:46] VITALS: PULSE 86; RESP 18; O2SAT 93
[2023-05-03] MEDS: Albuterol Sulfate 7.5 MG, Albuterol Sulfate (0.083%) 2.5 MG 10 MG INHALE (22:06)
[2023-05-03 22:07] VITALS: PULSE 86; RESP 18; O2SAT 96
[2023-05-03] MEDS: Magnesium Sulfate/H2O 2 GM/50 ML PIGGYBACK IV (22:20)
[2023-05-03 22:21] VITALS: BP 141/83; PULSE 103; RESP 20; TEMP 36.9; O2SAT 96
[2023-05-03 23:25] VITALS: BP 153/98; PULSE 103; RESP 20; TEMP 36.9; O2SAT 93
== END 2023-05-03 23:28 | disposition home or self-care (01) ==
PROVIDERS: Emergency Provider Student in an Organized Health Care Education/Training Program
DX: J45.901 Unspecified asthma with (acute) exacerbation (principal); I49.9 Cardiac arrhythmia, unspecified; R06.02 Shortness of breath
CPT/HCPCS: 71045; 93005; 94640; 96374; 99284; J3475

== ENCOUNTER → 2023-05-03 20:55 | Outpatient (BNV) | payer MEDICAID, SELFPAY | PROVIDERS: Emergency Provider Student in an Organized Health Care Education/Training Program; Visit Provider Internal Medicine | DX: R06.00 Dyspnea, unspecified (principal) | CPT/HCPCS: 93010 ==

== ENCOUNTER 2023-05-08 22:36 | Emergency (ER) | payer MEDICAID, SELFPAY ==
--- NOTE | 2023-05-08 | ECG_ITS ---
Test Reason : TACHYCARDIA Blood Pressure : / mmHG Vent. Rate : 118 BPM Atrial Rate : 118 BPM P-R Int : 144 ms QRS Dur : 068 ms QT Int : 306 ms P-R-T Axes : 071 076 047 degrees QTc Int : 428 ms Sinus tachycardia Possible Left atrial enlargement Borderline ECG When compared with ECG of 03-MAY-2023 21:30, No significant change was found Referred By: Generic ED Physician Electronically Signed By:Juliocesar Martínez
--- NOTE | ~2023-05-08 | XR_ITS ---
EXAMINATION: XR CHEST CLINICAL INFORMATION: Dyspnea COMPARISON: 05/03/2023 TECHNIQUE: 2 views of the chest were obtained. FINDINGS: Lung volumes are symmetric. No focal consolidation is seen. No evidence of pneumothorax, pleural effusion, or pulmonary edema. The cardiomediastinal contour is unremarkable. No acute osseous findings are seen. XR/XR chest 2V IMPRESSION: No acute cardiopulmonary findings.
[2023-05-08 22:38] VITALS: BP 165/95; PULSE 130; RESP 16; TEMP 38.1; O2SAT 93; BMI 39.5
[2023-05-08 23:06] LABS: Basophils Absolute Auto 0.1 X10*3/uL (0.0-0.2); Basophils Percent Auto 0.4 % (0-2); Eosinophils Absolute Auto 0.5 X10*3/uL (0.0-0.4); Eosinophils Percent Auto 3.9 % (0-4); Hematocrit 44.6 % (37.0-47.0); Hemoglobin 15.7 g/dl (12.0-16.0); Imm Gran Abs Auto 0.06 X10*3/uL (0.00-0.03); Imm Gran Pct Auto 0.4 % (0.0-0.4); Lymphocytes Absolute Auto 1.3 X10*3/uL (1.2-4.9); Lymphocytes Percent Auto 9.8 % (20-40); MANUAL DIFF FLAG SCAN; Mean Corpuscular HGB Conc 35.2 g/dl (31.0-35.0); Mean Corpuscular Hemoglobin 29.8 pg (27.0-33.0); Mean Corpuscular Volume 84.6 fL (80.0-98.0); Mean Platelet Volume 10.5 fL (9.4-12.3); Monocytes Absolute Auto 1.6 X10*3/uL (0.1-1.2); Monocytes Percent Auto 11.8 % (2-11); Neutrophils Absolute Auto 10.1 x10*3/uL (2.0-8.3); Neutrophils Percent Auto 73.7 % (45-73); Platelet Count 340 X10*3/uL (160-400); Red Blood Count 5.27 X10*6/uL (4.20-5.50); Red Cell Distribution Width 14.3 % (11.0-16.0); SCAN SMEAR FLAG 1; White Blood Count 13.6 X10*3/uL (4.8-10.8)
--- NOTE | 2023-05-08 23:15 | ED.GENADULT ---
HPI - General Adult General Chief complaint: Dyspnea Stated complaint: diff breathing Time Seen by Provider: 05/08/23 23:15 History of Present Illness HPI narrative: Patient is a 27-year-old woman with a history of asthma who has been having trouble breathing for about 2 weeks. Twelve days ago on April 26 she went to an urgent care where she was prescribed a course of prednisone that she finished 5 days later. She says it was the 50 mg dose. She finished the prednisone about a week ago. Gotten somewhat better but then she worsened again and came to the emergency room 4 days ago on SundayMay 04. She was treated with bronchodilators and IV magnesium. She was discharged but was not prescribed additional steroids at that point. The patient says that she has gradually gotten worse since that time and finally returned to the emergency room again today. Today the patient was noted to have a fever of 100.5. She does not know if she was feverish before today. She has tested positive for influenza today. When asked when she thinks the influenza might have begun she says that she can not tell because she has felt so unwell for the last 2 weeks. Related Data Previous Rx's Medication Instructions Recorded albuterol sulfate 90 mcg/actuation 1 inh inhalation QID PRN shortness 07/20/20 aerosol inhaler of breath or wheezing #6.7 grams azithromycin 250 mg tablet See Rx Instructions PO .COMPLEX #6 07/20/20 (Zithromax Z-José Miguel) tabs hydrocodone-homatropine 5 mg-1.5 5 ml PO Q6H PRN cough #60 mL 07/20/20 mg/5 mL oral syrup (Hycodan (with homatropine)) prednisone 20 mg tablet 40 mg (2 x 20 mg) PO DAILY #10 tabs 07/20/20 albuterol sulfate 0.63 mg/3 mL 0.63 mg (3 mL) inhalation QID PRN 07/21/20 solution for nebulization shortness of breath or wheezing #75 mL albuterol sulfate 2.5 mg/3 mL 2.5 mg (3 mL) inhalation Q4H PRN 07/28/20 (0.083 %) solution for nebulization shortness of breath or wheezing 30 days #180 mL doxycycline hyclate 100 mg capsule 100 mg PO BID 10 days #20 caps 07/28/20 prednisone 20 mg tablet 20 mg PO DAILY 10 days #15 tabs 07/28/20 cyclobenzaprine 10 mg tablet 10 mg PO TID PRN muscle spasm #10 10/12/22 tabs meloxicam 15 mg tablet 15 mg PO DAILY #10 tabs 10/12/22 prednisone 50 mg tablet 50 mg PO DAILY 4 days #4 tabs 10/28/22 albuterol sulfate 2.5 mg/3 mL 2.5 mg (3 mL) inhalation Q4-6H PRN 05/09/23 (0.083 %) solution for nebulization shortness of breath or wheezing #90 mL albuterol sulfate 90 mcg/actuation 2 puff inhalation Q4-6H PRN 05/09/23 aerosol inhaler shortness of breath or wheezing #8.5 grams azithromycin 250 mg tablet 250 mg PO DAILY 4 days #4 tabs 05/09/23 prednisone 50 mg tablet 50 mg PO DAILY 5 days #5 tabs 05/09/23 Allergies Allergy/AdvReac Type Severity Reaction Status Date / Time No Known Allergies Allergy Verified 05/08/23 22:37 [No Known Allergies*] Review of Systems Review of Systems: Yes all other systems are reviewed and are negative [facility] Past Medical History Medical History Cough Asthma exacerbation No known health problems Social History Social History Substance Use Type: Marijuana Advance Directives: No Advance Directives Information Provided: No Physical Exam ED Vital Signs: Vital Signs - 24 hr 05/08/23 22:38 05/09/23 00:05 05/09/23 02:00 Temperature 100.5 F H 96.9 F Pulse Rate 130 H 124 H 121 H Respiratory Rate 16 18 20 Blood Pressure 165/95 H 137/77 Pulse Oximetry 93 93 Oxygen Delivery Method Room Air Room Air BMI result Body Mass Index 39.5 Const Other: The patient was awake and alert. She looked somewhat short of breath with increased work of breathing and tachypnea. HENMT Other: Face is symmetrical. Mucous membranes moist Eyes Other: Pupils are round equal, conjunctivae clear Neck Other: No adenopathy, no stridor Resp Other: The patient was tachypneic with increased work of breathing. She had bilateral inspiratory and expiratory wheezes. Cardio Rate: tachycardic Rhythm: regular rhythm Heart sounds: S1 normal heart sound present and S2 normal heart sound present GI Other: The abdomen is soft and nontender Skin Other: Skin is dry and unremarkable Neuro Other: The patient is awake and alert with a normal mental status. Cranial nerves are intact. Moves extremities symmetrically. Grossly neurologically intact. Extrem Other: No peripheral edema. No calf swelling or tenderness Medications Administered Discontinued Medications Generic Name Dose Route Start Last Admin Trade Name Papito PRN Reason Stop Dose Admin Albuterol Sulfate 7.5 mg/ 10 mg 05/08/23 23:54 05/09/23 00:03 Albuterol Sulfate 2.5 mg INHALE 05/08/23 23:55 10 mg ONCE ONE Administration Sodium Chloride 1,000 mls @ 999 mls/hr 05/09/23 01:00 05/09/23 01:48 Ns IV 05/09/23 02:00 999 mls/hr .Q1H1M AISHA Administration Magnesium Sulfate 2 gm in 50 mls @ 150 mls/hr 05/09/23 00:49 05/09/23 02:41 Magnesium Sulfate/H2o IV 05/09/23 01:08 Infused ONCE ONE Infusion Ketorolac Tromethamine 15 mg 05/09/23 00:49 05/09/23 01:48 Ketorolac Tromethamine 15 Mg/Ml Vial IVPUSH 05/09/23 00:50 15 mg ONCE ONE Administration Prednisone 60 mg 05/08/23 23:19 05/09/23 00:18 Prednisone 20 Mg Tablet PO 05/08/23 23:20 60 mg ONCE ONE Administration Medical Decision Making Medical Decision Making [facility] Narrative: The patient is a very pleasant 27-year-old who looks quite short of breath with increased work of breathing and bilateral wheezes consistent with an asthma exacerbation. Chest x-ray was unremarkable. Blood testing was unremarkable but her viral swab was positive for influenza A. The patient was treated with a continuous 10 mg albuterol updraft. She was also given 60 mg of oral prednisone. Subsequently she was also given 1 L of IV normal saline as well as ketorolac and IV magnesium. Initially the patient looks quite short of breath and she became quite tachycardic after her bronchodilator treatment. She was observed an ultimately looked as if she her heart rate, which had gone up to around 150 came down to around 120. She looks so much better that I thought that I thought outpatient management would likely be feasible. Positive for influenza a today but she isn't really a history that suggests is necessarily acute enough to think that oseltamivir would be appropriate. It is possible she has had the flu for many days. The patient will be discharged on a course of prednisone and also a course of azithromycin. Apparently she has access to a nebulizer machine at home. I will also prescribe albuterol nebules as well as a new albuterol MDI. She has a spacer. She should follow up with the PCP. She should return if worse. Lab Data 05/08/23 22:59 05/08/23 22:59 Labs: Lab Results 05/08/23 Range/Units 22:59 WBC 13.6 H (4.8-10.8) X10*3/uL RBC 5.27 (4.20-5.50) X10*6/uL Hgb 15.7 (12.0-16.0) g/dl Hct 44.6 (37.0-47.0) % MCV 84.6 (80.0-98.0) fL MCH 29.8 (27.0-33.0) pg MCHC 35.2 H (31.0-35.0) g/dl RDW 14.3 (11.0-16.0) % Plt Count 340 (160-400) X10*3/uL MPV 10.5 (9.4-12.3) fL Immature Gran % (Auto) 0.4 (0.0-0.4) % Neut % (Auto) 73.7 H (45-73) % Lymph % (Auto) 9.8 L (20-40) % Dodge % (Auto) 11.8 H (2-11) % Eos % (Auto) 3.9 (0-4) % Baso % (Auto) 0.4 (0-2) % Lymph # (Auto) 1.3 (1.2-4.9) X10*3/uL Dodge # (Auto) 1.6 H (0.1-1.2) X10*3/uL Eos # (Auto) 0.5 H (0.0-0.4) X10*3/uL Baso # (Auto) 0.1 (0.0-0.2) X10*3/uL Abs Immat Gran (auto) 0.06 H (0.00-0.03) X10*3/uL Absolute Neuts (auto) 10.1 H (2.0-8.3) x10*3/uL Absolute Nucleated RBC 0.000 (0.0-0.012) X10*3/uL Nucleated RBC % (auto) 0.0 (0.0-0.2) /100WBC Smear Tech's Comments VERIFIED Sodium 139 (135-145) mmol/L Potassium 4.0 (3.3-5.1) mmol/L Chloride 104 (96-108) mmol/L Carbon Dioxide 24 (22-29) mmol/L Anion Gap 15 (12-20) BUN 9 (9-16) mg/dL Creatinine 0.84 (0.5-1.4) mg/dL Estim Creat Clear Calc 119.4 Estimated GFR > 60 Random Glucose 129 H (60-115) mg/dL Calcium 9.8 (8.4-10.2) mg/dL Total Bilirubin 0.5 (0.0-1.0) mg/dL AST 24 (5-31) U/L ALT 31 (0-31) U/L Alkaline Phosphatase 113 (39-117) U/L Total Protein 7.6 (6.5-8.0) g/dL Albumin 4.2 (3.5-5.0) g/dL Beta HCG, Quant < 2 mIU/mL Influenza Type A (PCR) POSITIVE A (Negative) Influenza Type B (PCR) NEGATIVE (Negative) RSV RNA Qual (PCR) NEGATIVE (Negative) SARS-CoV-2 RNA (RT-PCR) NEGATIVE (Negative) Discharge Plan Discharge Clinical Impression: Acute asthmatic bronchitis, Influenza A Patient Disposition: Home, Self-Care Additional Instructions: Please take prednisone once a day as prescribed. Next dose tomorrow. Please take azithromycin once a day as prescribed. Next dose tomorrow. Please take albuterol every 4 hours as needed for coughing and wheezing. You may use albuterol by machine with the nebulizers prescribed or you may use the albuterol inhaler. When you use the albuterol inhaler use the AeroChamber (spacer) which you have at home. Please work on getting a primary care doctor and following up with the primary care doctor. Return to the emergency room if worse Prescriptions: New prednisone 50 mg tablet 50 mg PO DAILY 5 Days Qty: 5 0RF azithromycin 250 mg tablet 250 mg PO DAILY 4 Days Qty: 4 0RF Rx Instructions: start on day 2 of therapy albuterol sulfate 2.5 mg /3 mL (0.083 %) solution for nebulization 2.5 mg inhalation Q4-6H PRN (Reason: shortness of breath or wheezing) Qty: 90 0RF albuterol sulfate 90 mcg/actuation HFA aerosol inhaler 2 puff inhalation Q4-6H PRN (Reason: shortness of breath or wheezing) Qty: 8.5 0RF No Action albuterol sulfate 90 mcg/actuation HFA aerosol inhaler 1 inh inhalation QID PRN (Reason: shortness of breath or wheezing) Qty: 6.7 0RF azithromycin [Zithromax Z-José Miguel] 250 mg tablet See Rx Instructions .ROUTE .COMPLEX Qty: 6 0RF Rx Instructions: take 500 mg today (day 1), then 250 mg for 4 days (days 2-5) prednisone 20 mg tablet 40 mg PO DAILY Qty: 10 0RF hydrocodone-homatropine [Hycodan (with homatropine)] 5-1.5 mg/5 mL syrup 5 ml PO Q6H PRN (Reason: cough) Qty: 60 0RF albuterol sulfate 0.63 mg/3 mL solution for nebulization 0.63 mg inhalation QID PRN (Reason: shortness of breath or wheezing) Qty: 75 0RF meloxicam 15 mg tablet 15 mg PO DAILY Qty: 10 0RF cyclobenzaprine 10 mg tablet 10 mg PO TID PRN (Reason: muscle spasm) Qty: 10 0RF prednisone 50 mg tablet 50 mg PO DAILY 4 Days Qty: 4 0RF albuterol sulfate 2.5 mg /3 mL (0.083 %) solution for nebulization 2.5 mg inhalation Q4H PRN (Reason: shortness of breath or wheezing) 30 Days Qty: 180 11RF prednisone 20 mg tablet 20 mg PO DAILY 10 Days Qty: 15 0RF Rx Instructions: Take 2 tabs daily x 5 days, then 1 tablet daily x 5 days doxycycline hyclate 100 mg capsule 100 mg PO BID 10 Days Qty: 20 0RF Referrals: [facility]. Kana Zuniga [Provider Group] (Asthma exacerbation, influenza)
[2023-05-08 23:25] LABS: SLIDE REVIEW VERIFIED
--- NOTE | 2023-05-08 23:33 | PC.NURSE ---
Pt is a 27 y/o female who presents with family for ongoing shortness of breath, wheezing, and fatigue with activity. Pt was evaluated at approximately 2 weeks ago and treated with a tapering dose of prednisone. When symptoms didn't resolved and continue to worsen, pt presented here for further evaluation on 05/02, had labs drawn, treated with magnesium, and discharged home. Symptoms are still ongoing and pt reports increasing shortness of breath with wheezing, worsened with exertion, inability to sleep lying down, and poor appetite. Pt denies contact with anyone sick, including children. Has been staying hydrated and denies any fever up until today. Has tried muccinex and allergy medication, without success in reducing symptoms. No other complaints or concerns verbalized.
[2023-05-08 23:35] LABS: Alanine Aminotransferase 31 U/L (0-31); Albumin Level 4.2 g/dL (3.5-5.0); Alkaline Phosphatase 113 U/L (39-117); Anion Gap 15 (12-20); Aspartate Amino Transferase 24 U/L (5-31); Bilirubin Total 0.5 mg/dL (0.0-1.0); Blood Urea Nitrogen 9 mg/dL (9-16); Calcium 9.8 mg/dL (8.4-10.2); Carbon Dioxide 24 mmol/L (22-29); Chloride 104 mmol/L (96-108); Creatinine Clr Calc Pharmacy 119.4; Estimated Glomerular Filt Rate > 60; Glucose Random 129 mg/dL (60-115); HCG Quantitative < 2 mIU/mL; Sodium 139 mmol/L (135-145); Total Protein 7.6 g/dL (6.5-8.0)
[2023-05-08 23:56] LABS: Influenza A PCR POSITIVE (Negative); Influenza B PCR NEGATIVE (Negative); Resp Syncy Virus RNA Qual PCR NEGATIVE (Negative); SARS COV2 PCR INHOUSE NEGATIVE (Negative)
[2023-05-09] MEDS: Albuterol Sulfate 7.5 MG, Albuterol Sulfate (0.083%) 2.5 MG 10 MG INHALE (00:03)
[2023-05-09 00:05] VITALS: PULSE 124; RESP 18; O2SAT 95
[2023-05-09] MEDS: predniSONE 20 MG TABLET 60 MG PO (00:18)
--- NOTE | 2023-05-09 00:27 | PC.NURSE ---
Medicated per Apr. Pt verbalized shortness of breath improved minimally after nebulizer treatment. LS are wheezing throughout.
--- NOTE | 2023-05-09 01:34 | PC.NURSE ---
IV access attempted X 2 with no success.
[2023-05-09] MEDS: Ketorolac Tromethamine 15 MG/ML VIAL IVPUSH (01:48)
[2023-05-09] MEDS: 0.9 % Sodium Chloride 1,000 ML 999 ML IV (01:48)
[2023-05-09] MEDS: Magnesium Sulfate/H2O 2 GM/50 ML PIGGYBACK IV (01:51)
[2023-05-09 02:00] VITALS: BP 137/77; PULSE 121; RESP 20; TEMP 36.1; O2SAT 93
[2023-05-09 03:01] VITALS: BP 137/77; PULSE 121; RESP 20; TEMP 37.2; O2SAT 93
[2023-05-09] MEDS: Azithromycin 500 MG TABLET PO (03:10)
== END 2023-05-09 03:13 | disposition home or self-care (01) ==
PROVIDERS: Emergency Provider Emergency Medicine
DX: J10.1 Influenza due to other identified influenza virus with other respiratory manifestations (principal); R00.0 Tachycardia, unspecified; J45.909 Unspecified asthma, uncomplicated; R06.02 Shortness of breath; Z11.52 Encounter for screening for COVID-19; Z20.822 Contact with and (suspected) exposure to COVID-19; Z79.899 Other long term (current) drug therapy
CPT/HCPCS: 0241U; 36415; 71046; 80053; 84702; 85025; 93005; 94640; 96365; 96375; 99284; J1885; J3475

== ENCOUNTER → 2023-05-08 22:49 | Outpatient (BNV) | payer MEDICAID, SELFPAY | PROVIDERS: Emergency Provider Emergency Medicine; Visit Provider Internal Medicine Cardiovascular Disease | DX: R00.0 Tachycardia, unspecified (principal) | CPT/HCPCS: 93010 ==

== ENCOUNTER → 2024-01-07 04:35 | Outpatient (BNV) | payer OTHER, SELFPAY | PROVIDERS: Emergency Provider Emergency Medicine; PCP Internal Medicine; Visit Provider Internal Medicine | DX: R07.9 Chest pain, unspecified (principal) | CPT/HCPCS: 93010 ==

== ENCOUNTER 2024-01-07 04:38 | Emergency (ER) | payer OTHER, SELFPAY ==
--- NOTE | 2024-01-07 | ECG_ITS ---
Test Reason : CP Blood Pressure : / mmHG Vent. Rate : 099 BPM Atrial Rate : 099 BPM P-R Int : 152 ms QRS Dur : 068 ms QT Int : 332 ms P-R-T Axes : 069 075 054 degrees QTc Int : 426 ms Normal sinus rhythm with sinus arrhythmia Normal ECG When compared with ECG of 08-MAY-2023 22:49, No significant change was found Referred By: Generic ED Physician Electronically Signed By:NITA MULLER
--- NOTE | ~2024-01-07 | XR_ITS ---
EXAMINATION: XR CHEST CLINICAL INFORMATION: chest pain/cough COMPARISON: 05/08/2023 TECHNIQUE: 2 views of the chest were obtained. FINDINGS: No significant abnormality is noted involving the heart, lungs, mediastinum, bony thorax or soft tissues. XR/XR chest 2V IMPRESSION: Unremarkable examination. Electronically signed by: Sky Clements MD 01/07/2024 08:42 AM [facility]
[2024-01-07 04:49] VITALS: BP 150/67; PULSE 92; RESP 18; TEMP 37; O2SAT 94; BMI 43.7
[2024-01-07 05:13] LABS: Basophils Absolute Auto 0.1 X10*3/uL (0.0-0.2); Basophils Percent Auto 0.4 % (0-2); Hematocrit 44.3 % (37.0-47.0); Hemoglobin 15.9 g/dl (12.0-16.0); Imm Gran Abs Auto 0.07 X10*3/uL (0.00-0.03); Imm Gran Pct Auto 0.4 % (0.0-0.4); Lymphocytes Absolute Auto 3.1 X10*3/uL (1.2-4.9); Lymphocytes Percent Auto 18.5 % (20-40); MANUAL DIFF FLAG NO; Mean Corpuscular HGB Conc 35.9 g/dl (31.0-35.0); Mean Corpuscular Hemoglobin 31.1 pg (27.0-33.0); Mean Corpuscular Volume 86.7 fL (80.0-98.0); Mean Platelet Volume 10.7 fL (9.4-12.3); Monocytes Absolute Auto 1.2 X10*3/uL (0.1-1.2); Monocytes Percent Auto 6.9 % (2-11); Neutrophils Absolute Auto 11.4 x10*3/uL (2.0-8.3); Neutrophils Percent Auto 67.8 % (45-73); Platelet Count 313 X10*3/uL (160-400); Red Blood Count 5.11 X10*6/uL (4.20-5.50); Red Cell Distribution Width 14.8 % (11.0-16.0); White Blood Count 16.8 X10*3/uL (4.8-10.8)
[2024-01-07 05:23] LABS: D Dimer High Sensitivity < 150 NG/ML
--- NOTE | 2024-01-07 05:27 | PC.NURSE ---
Pt a&ox3, no signs of distress. Pt reports 8/10 cp Pts family at bedside Plan of care ongoing.
[2024-01-07 05:32] LABS: Alanine Aminotransferase 26 U/L (0-31); Albumin Level 4.5 g/dL (3.5-5.0); Alkaline Phosphatase 123 U/L (39-117); Anion Gap 17 (12-20); Aspartate Amino Transferase 24 U/L (5-31); Bilirubin Total 0.5 mg/dL (0.0-1.0); Blood Urea Nitrogen 14 mg/dL (9-16); Calcium 9.8 mg/dL (8.4-10.2); Carbon Dioxide 23 mmol/L (22-29); Chloride 105 mmol/L (96-108); Creatinine Clr Calc Pharmacy 106.5; Estimated Glomerular Filt Rate > 60; Glucose Random 112 mg/dL (60-115); Potassium 4.1 mmol/L (3.3-5.1); Sodium 141 mmol/L (135-145); Total Protein 7.7 g/dL (6.5-8.0)
[2024-01-07 05:34] LABS: Troponin-I High Sensitivity < 2.7 ng/L (<3.5-17.0)
[2024-01-07 05:50] LABS: Influenza A PCR NEGATIVE (Negative); Influenza B PCR NEGATIVE (Negative); Resp Syncy Virus RNA Qual PCR NEGATIVE (Negative); SARS COV2 PCR INHOUSE NEGATIVE (Negative)
[2024-01-07 06:28] VITALS: BP 143/73; PULSE 84; RESP 19; TEMP 36.8; O2SAT 97
--- NOTE | 2024-01-07 06:30 | ED_ITS ---
HPI - Chest Pain General Chief Complaint: Chest Pain Stated Complaint: chest tightness, difficulty breathing, chest pain Time Seen by Provider: 01/07/24 06:28 Source: patient and RN notes reviewed Mode of arrival: ambulatory Limitations: no limitations History of Present Illness ED Provider: Deanna CHAVES narrative: Patient is a 28-year-old female with history of asthma presenting to the ED with complaint of shortness of breath, nonproductive cough, and chest pain/tightness since Sunday. States her chest pain is only with episodes of coughing. Flew back here from [place] yesterday at 5pm. Denies fevers but reports intermittent hot flashes. Has been using albuterol/ipratropium inhaler at home with little relief. MD complaint: other Pertinent past history: asthma Onset (ago): day(s) Timing of current episode: still present Onset: during rest Pain radiation: none Quality: tightness Exacerbating factors: other (coughing) Context: recent illness Associated symptoms: dyspnea Treatment prior to arrival: other Related Data Previous Rx's ?Medication ?Instructions ?Recorded albuterol sulfate 90 mcg/actuation 1 inh inhalation QID PRN shortness 07/20/20 aerosol inhaler of breath or wheezing #6.7 grams azithromycin 250 mg tablet See Rx Instructions PO .COMPLEX #6 07/20/20 (Zithromax Z-José Miguel) tabs hydrocodone-homatropine 5 mg-1.5 5 ml PO Q6H PRN cough #60 mL 07/20/20 mg/5 mL oral syrup (Hycodan (with homatropine)) prednisone 20 mg tablet 40 mg (2 x 20 mg) PO DAILY #10 tabs 07/20/20 albuterol sulfate 0.63 mg/3 mL 0.63 mg (3 mL) inhalation QID PRN 07/21/20 solution for nebulization shortness of breath or wheezing #75 mL albuterol sulfate 2.5 mg/3 mL 2.5 mg (3 mL) inhalation Q4H PRN 07/28/20 (0.083 %) solution for nebulization shortness of breath or wheezing 30 days #180 mL doxycycline hyclate 100 mg capsule 100 mg PO BID 10 days #20 caps 07/28/20 prednisone 20 mg tablet 20 mg PO DAILY 10 days #15 tabs 07/28/20 cyclobenzaprine 10 mg tablet 10 mg PO TID PRN muscle spasm #10 10/12/22 tabs meloxicam 15 mg tablet 15 mg PO DAILY #10 tabs 10/12/22 prednisone 50 mg tablet 50 mg PO DAILY 4 days #4 tabs 10/28/22 albuterol sulfate 2.5 mg/3 mL 2.5 mg (3 mL) inhalation Q4-6H PRN 05/09/23 (0.083 %) solution for nebulization shortness of breath or wheezing #90 mL albuterol sulfate 90 mcg/actuation 2 puff inhalation Q4-6H PRN 05/09/23 aerosol inhaler shortness of breath or wheezing #8.5 grams azithromycin 250 mg tablet 250 mg PO DAILY 4 days #4 tabs 05/09/23 prednisone 50 mg tablet 50 mg PO DAILY 5 days #5 tabs 05/09/23 benzonatate 100 mg capsule 100 mg PO TID PRN cough #14 caps 01/07/24 prednisone 20 mg tablet 40 mg (2 x 20 mg) PO DAILY #10 tabs 01/07/24 Allergies Allergy/AdvReac Type Severity Reaction Status Date / Time No Known Allergies Allergy Verified 01/07/24 04:55 [No Known Allergies*] Review of Systems 2 Review of Systems: As per HPI Yes all other systems are reviewed and are negative Constitutional: Constitutional: Reports as per HPI PMFSH Past Medical History Medical History Cough Asthma exacerbation No known health problems Social History Social History Smoked in Last 30 Days: No Use of substances other than those prescribed or required for medical reasons: Yes Substance Use Type: Marijuana Advance Directives: No Advance Directives Information Provided: Yes Physical Exam 2 Vital Signs: Vital Signs: Last Vital Signs Temp 98.2 F 01/07/24 06:28 Pulse 84 01/07/24 06:58 Resp 19 01/07/24 06:28 BP 143/73 H 01/07/24 06:28 Pulse Ox 97 01/07/24 06:28 O2 Del Method Room Air 01/07/24 06:28 BMI result Body Mass Index 43.7 Vital signs have been reviewed and appear to be correct. Blood pressure normal. Heart rate normal. Respiratory rate normal. Temperature normal. Oxygen saturation normal. Const: General: cooperative, healthy appearing and no acute distress O rientation/consciousness: oriented to person, oriented to place, oriented to time and patient oriented x3 Limitations: no limitations HEENT: Head: Yes normocephalic and Yes atraumatic Ears: external ears normal General nose exam: Normal external nose present Face and sinus: Yes face symmetric Mouth: oropharynx normal and moist mucous membranes Throat: Yes uvula midline Eyes: Pupils: Equal, round and reactive pupils present Neck: Neck: Yes normal visual inspection and Yes supple Resp: Effort & Inspection: normal respiratory effort and able to speak in complete sentences Auscultation: wheezes (expiratory > inspiratory) expiratory wheezes, inspiratory wheezes and throughout Cardio: Rate: regular rate Rhythm: regular rhythm Heart sounds: S1 normal heart sound present and S2 normal heart sound present GI: Palpation (GI): Soft to palpation and nontender Auscultation: n ormoactive bowel sounds : General: Yes no CVA tenderness Back/Spine/Pelvis: Back: no CVA tenderness Skin: General skin exam: elasticity normal and turgor normal Neuro: General: oriented to person, oriented to place, oriented to time, patient oriented x3, moves all extremities, no focal motor deficits and CN's II- XI intact bilaterally Cranial nerves: Yes Equal, round and reactive pupils present Cognition (Neuro): normal cognition Extrem: General: Yes full ROM, Yes no pedal edema and Yes no calf tenderness Psych: Mental Status: mental status grossly normal Affect: normal affect Thought process: Normal thought process present Medications Administered Discontinued Medications Generic Name Dose Route Start Last Admin Trade Name Santhoshq PRN Reason Stop Dose Admin Albuterol Sulfate 2.5 mg/ 5 mg 01/07/24 06:54 01/07/24 06:58 Albuterol Sulfate 2.5 mg INHALE 01/07/24 06:55 5 mg ONCE ONE Administration Medical Decision Making Medical Decision Making MDM Narrative: Patient is a 28-year-old female with history of asthma presenting to the ED with complaint of shortness of breath, nonproductive cough, and chest pain/tightness since Sunday. On exam patient is awake, A+Ox3, VS WNL, afebrile, normal neurological exam without focal deficits, physical exam findings as above. Given reported symptoms and physical exam findings, initial differential includes viral illness, asthma exacerbation, bronchitis, pneumonia. Unlikely ACS, PE. Labs ordered prior to my assumption of care notable for leukocytosis, negative d-dimer, negative troponin, no significant electrolyte abnormalities. Viral serology negative. EKG shows normal sinus rhythm. X-ray chest notable for no evidence of pneumonia. My interpretation is in agreement with the radiologist's interpretation. Symptoms improved with breathing treatment from RT. Feel patient is stable for discharge home. Will discharge on short course of prednisone, as well as benzonatate. Follow up with PCP. Return precautions discussed at bedside. Patient verbalized understanding of and agreement with plan. Differential Diagnosis Differential Diagnoses: The differential diagnosis associated with the presentation includes as per [facility] Admission/Observation Consideration of admission/observation: Escalation of care including admission/observation considered Patient would have been admitted to the hospital had their work up had any findings where hospital admission was appropriate and their clinical presentation warranted hospital admission. Lab Data [facility] Lab Attestation statement: I reviewed the patient's lab results. as per [facility] 01/07/24 05:08 01/07/24 05:08 Labs: Lab Results 01/07/24 01/07/24 Range/Units 05:08 07:26 WBC 16.8 H (4.8-10.8) X10*3/uL RBC 5.11 (4.20-5.50) X10*6/uL Hgb 15.9 (12.0-16.0) g/dl Hct 44.3 (37.0-47.0) % MCV 86.7 (80.0-98.0) fL MCH 31.1 (27.0-33.0) pg MCHC 35.9 H (31.0-35.0) g/dl RDW 14.8 (11.0-16.0) % Plt Count 313 (160-400) X10*3/uL MPV 10.7 (9.4-12.3) fL Immature Gran % (Auto) 0.4 (0.0-0.4) % Neut % (Auto) 67.8 (45-73) % Lymph % (Auto) 18.5 L (20-40) % [place] % (Auto) 6.9 (2-11) % Eos % (Auto) 6.0 H (0-4) % Baso % (Auto) 0.4 (0-2) % Lymph # (Auto) 3.1 (1.2-4.9) X10*3/uL [place] # (Auto) 1.2 (0.1-1.2) X10*3/uL Eos # (Auto) 1.0 H (0.0-0.4) X10*3/uL Baso # (Auto) 0.1 (0.0-0.2) X10*3/uL Abs Immat Gran (auto) 0.07 H (0.00-0.03) X10*3/uL Absolute Neuts (auto) 11.4 H (2.0-8.3) x10*3/uL Absolute Nucleated RBC 0.000 (0.0-0.012) X10*3/uL Nucleated RBC % (auto) 0.0 (0.0-0.2) /100WBC D-Dimer High Sensitivty < 150 NG/ML Sodium 141 (135-145) mmol/L Potassium 4.1 (3.3-5.1) mmol/L Chloride 105 (96-108) mmol/L Carbon Dioxide 23 (22-29) mmol/L Anion Gap 17 (12-20) BUN 14 (9-16) mg/dL Creatinine 0.99 (0.5-1.4) mg/dL Estim Creat Clear Calc 106.5 Estimated GFR > 60 Random Glucose 112 (60-115) mg/dL Calcium 9.8 (8.4-10.2) mg/dL Total Bilirubin 0.5 (0.0-1.0) mg/dL AST 24 (5-31) U/L ALT 26 (0-31) U/L Alkaline Phosphatase 123 H (39-117) U/L Troponin I High Sens < 2.7 (<3.5-17.0) ng/L Total Protein 7.7 (6.5-8.0) g/dL Albumin 4.5 (3.5-5.0) g/dL Urine Test NEGATIVE (NEGATIVE) Influenza Type A (PCR) NEGATIVE (Negative) Influenza Type B (PCR) NEGATIVE (Negative) RSV RNA Qual (PCR) NEGATIVE (Negative) SARS-CoV-2 RNA (RT-PCR) NEGATIVE (Negative) Independent Interpretation I performed an independent interpretation of an: EKG (normal sinus rhythm, rate 99bpm, normal OR interval and QTc, no significant change from prior) and Plain X-Ray Interpretation: No evidence of pneumonia on chest xray. Radiology Impression Discussion of test interpretation with radiology: I have reviewed the radiologist's reading. Radiologist Impression: XR/XR chest 2V IMPRESSION: Unremarkable examination. External Record Review External record reviewed: Inpatient record, Office record and Outpatient record Prescription Management I considered prescription management with: Other Discharge Plan Discharge Clinical Impression: Asthma exacerbation Patient Disposition: Home, Self-Care Instructions: Asthma (DC), Wheezing (ED) Additional Instructions: You were evaluated in the emergency department today for cough, wheezing and shortness of breath. You are being treated for an asthma exacerbation with a short course of steroids to decrease inflammation. You are being prescribed benzonatate for cough which you can use every 8 hours as needed, PLEASE BE SURE TO KEEP THIS MEDICATION OUT OF THE REACH OF CHILDREN. Continue to use your prescribed inhaler. Please follow-up with your primary care provider this week. Return to the emergency department if you develop worsening shortness of breath, difficulty breathing, chest pain, fever not improved with Tylenol or ibuprofen, or any other concerning symptoms. Prescriptions: New prednisone 20 mg tablet 40 mg PO DAILY Qty: 10 0RF benzonatate 100 mg capsule 100 mg PO TID PRN (Reason: cough) Qty: 14 0RF No Action albuterol sulfate 90 mcg/actuation HFA aerosol inhaler 1 inh inhalation QID PRN (Reason: shortness of breath or wheezing) Qty: 6.7 0RF azithromycin [Zithromax Z-José Miguel] 250 mg tablet See Rx Instructions .ROUTE .COMPLEX Qty: 6 0RF Rx Instructions: take 500 mg today (day 1), then 250 mg for 4 days (days 2-5) prednisone 20 mg tablet 40 mg PO DAILY Qty: 10 0RF hydrocodone-homatropine [Hycodan (with homatropine)] 5-1.5 mg/5 mL syrup 5 ml PO Q6H PRN (Reason: cough) Qty: 60 0RF albuterol sulfate 0.63 mg/3 mL solution for nebulization 0.63 mg inhalation QID PRN (Reason: shortness of breath or wheezing) Qty: 75 0RF meloxicam 15 mg tablet 15 mg PO DAILY Qty: 10 0RF cyclobenzaprine 10 mg tablet 10 mg PO TID PRN (Reason: muscle spasm) Qty: 10 0RF prednisone 50 mg tablet 50 mg PO DAILY 5 Days Qty: 5 0RF azithromycin 250 mg tablet 250 mg PO DAILY 4 Days Qty: 4 0RF Rx Instructions: start on day 2 of therapy albuterol sulfate 2.5 mg /3 mL (0.083 %) solution for nebulization 2.5 mg inhalation Q4-6H PRN (Reason: shortness of breath or wheezing) Qty: 90 0RF albuterol sulfate 90 mcg/actuation HFA aerosol inhaler 2 puff inhalation Q4-6H PRN (Reason: shortness of breath or wheezing) Qty: 8.5 0RF prednisone 50 mg tablet 50 mg PO DAILY 4 Days Qty: 4 0RF albuterol sulfate 2.5 mg /3 mL (0.083 %) solution for nebulization 2.5 mg inhalation Q4H PRN (Reason: shortness of breath or wheezing) 30 Days Qty: 180 11RF prednisone 20 mg tablet 20 mg PO DAILY 10 Days Qty: 15 0RF Rx Instructions: Take 2 tabs daily x 5 days, then 1 tablet daily x 5 days doxycycline hyclate 100 mg capsule 100 mg PO BID 10 Days Qty: 20 0RF Print Language: Bengali
[2024-01-07 06:58] VITALS: PULSE 84; O2SAT 94
[2024-01-07] MEDS: Albuterol Sulfate 2.5 MG, Albuterol Sulfate (0.083%) 2.5 MG 5 MG INHALE (06:58)
--- NOTE | 2024-01-07 07:32 | PC.NURSE ---
Resumed care of pt at 0700. Pt resting quietly, up in stretcher. A/ox4, inspiratory/expiratory wheezing heard, respirations even and unlabored, tachycardic on electronic data interchange specialist, HR- 110s-120s, abdomen soft, non-tender. Pt urine obtained and sent to lab. Plan for xray. Call hobbs within reach, all needs met at this time.
[2024-01-07 07:38] LABS: UPreg QC Valid YES; Urine Pregnancy NEGATIVE (NEGATIVE)
[2024-01-07 08:00] VITALS: BP 136/70; PULSE 98; RESP 20; TEMP 36.8; O2SAT 99
[2024-01-07 09:39] VITALS: BP 136/70; PULSE 98; RESP 20; TEMP 36.8; O2SAT 99
== END 2024-01-07 09:40 | disposition home or self-care (01) ==
PROVIDERS: Emergency Provider Emergency Medicine; PCP Internal Medicine
DX: J45.901 Unspecified asthma with (acute) exacerbation (principal); R07.9 Chest pain, unspecified; R05.9 Cough, unspecified; Z79.899 Other long term (current) drug therapy; Z03.818 Encounter for observation for suspected exposure to other biological agents ruled out
CPT/HCPCS: 0241U; 71046; 80053; 81025; 84484; 85025; 85379; 93005; 94640; 99283; 99284; 99285

== ENCOUNTER 2024-01-19 06:48 | Observation (INO) | payer OTHER, SELFPAY ==
[2024-01-19] VITALS (12 sets, daily range): BP systolic 134–181; BP diastolic 72–116; PULSE 106–128; RESP 14–22; TEMP 36–37.1; O2SAT 87–97; BMI 41.2
--- NOTE | ~2024-01-19 | XR_ITS ---
EXAMINATION: XR CHEST CLINICAL INFORMATION: SOB COMPARISON: Chest 01/07/2024 TECHNIQUE: 2 views of the chest were obtained. FINDINGS: No significant abnormality is noted involving the heart, lungs, mediastinum, bony thorax or soft tissues. XR/XR chest 2V IMPRESSION: Unremarkable chest examination. Electronically signed by: Dieon Cox MD 01/19/2024 07:41 AM [facility]
--- NOTE | 2024-01-19 07:30 | PC.NURSE ---
a&ox4. pt presents to the ED c/o upper respiratory sx a few days. hx of asthma. pt reports some relief w/ rx of prednisone that she was previously prescribed but has recently ran out. using at home inhalers/nebulizers w/o relief. pt reports increased sob/nonproductive cough/chills/night sweats. 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 slightly hypertensive. tachypneic. pt displays w/ sob. 90% on RA - pt positioned upright to promote patent airway. wheezing noted throughout upon auscultation. swabs obtained/sent to lab. pt waiting for xray to be completed at this time. plan of care ongoing. call hobbs placed within reach.
--- NOTE | 2024-01-19 07:33 | ED.URI ---
HPI - URI/Sore Throat General Chief Complaint: Upper Respiratory Symptoms Stated Complaint: cough diff breathing Time Seen by Provider: 01/19/24 07:09 Source: patient Mode of arrival: ambulatory Limitations: no limitations History of Present Illness ED Provider: RIYA Carrera HPI Narrative: This is a 28-year-old female without significant medical history presenting to the emergency department with cough, wheezing, shortness breath, chest discomfort, fatigue, malaise, myalgias x2 weeks she reports she recently traveled on a cruise to [place] [facility]. Since then has not been feeling well. She was seen here at this emergency department told she had asthma, given prednisone which she does not feel like it is helping. She reports when she ambulates for short periods of time she finds herself very short of breath and wheezing. Significant other who is at the bedside also states that she sounds very wheezy at night when she is sleeping. She denies fevers, chills, nausea, vomiting, diarrhea, headache, vision changes, dizziness and weakness. No sick contacts. Related Data Previous Rx's ?Medication ?Instructions ?Recorded albuterol sulfate 90 mcg/actuation 1 inh inhalation QID PRN shortness 07/20/20 aerosol inhaler of breath or wheezing #6.7 grams azithromycin 250 mg tablet See Rx Instructions PO .COMPLEX #6 07/20/20 (Zithromax Z-José Miguel) tabs hydrocodone-homatropine 5 mg-1.5 5 ml PO Q6H PRN cough #60 mL 07/20/20 mg/5 mL oral syrup (Hycodan (with homatropine)) prednisone 20 mg tablet 40 mg (2 x 20 mg) PO DAILY #10 tabs 07/20/20 albuterol sulfate 0.63 mg/3 mL 0.63 mg (3 mL) inhalation QID PRN 07/21/20 solution for nebulization shortness of breath or wheezing #75 mL albuterol sulfate 2.5 mg/3 mL 2.5 mg (3 mL) inhalation Q4H PRN 07/28/20 (0.083 %) solution for nebulization shortness of breath or wheezing 30 days #180 mL doxycycline hyclate 100 mg capsule 100 mg PO BID 10 days #20 caps 07/28/20 prednisone 20 mg tablet 20 mg PO DAILY 10 days #15 tabs 07/28/20 cyclobenzaprine 10 mg tablet 10 mg PO TID PRN muscle spasm #10 10/12/22 tabs meloxicam 15 mg tablet 15 mg PO DAILY #10 tabs 10/12/22 prednisone 50 mg tablet 50 mg PO DAILY 4 days #4 tabs 10/28/22 albuterol sulfate 2.5 mg/3 mL 2.5 mg (3 mL) inhalation Q4-6H PRN 05/09/23 (0.083 %) solution for nebulization shortness of breath or wheezing #90 mL albuterol sulfate 90 mcg/actuation 2 puff inhalation Q4-6H PRN 05/09/23 aerosol inhaler shortness of breath or wheezing #8.5 grams azithromycin 250 mg tablet 250 mg PO DAILY 4 days #4 tabs 05/09/23 prednisone 50 mg tablet 50 mg PO DAILY 5 days #5 tabs 05/09/23 albuterol sulfate 90 mcg/actuation 2 puff inhalation Q4-6H PRN 01/07/24 aerosol inhaler shortness of breath or wheezing #6.7 grams benzonatate 100 mg capsule 100 mg PO TID PRN cough #14 caps 01/07/24 prednisone 20 mg tablet 40 mg (2 x 20 mg) PO DAILY #10 tabs 01/07/24 Allergies Allergy/AdvReac Type Severity Reaction Status Date / Time No Known Allergies Allergy Verified 01/19/24 07:00 [No Known Allergies*] Review of Systems Review of Systems: Yes all other systems are reviewed and are negative PMFSH Past Medical History Attestation statement: The following information was validated with the patient. Source: old records reviewed and nursing notes reviewed Medical History Cough Asthma exacerbation No known health problems Social History Social History Substance Use Type: Marijuana Advance Directives: No Advance Directives Information Provided: No Do you have a plan to hurt others: No Plan Physical Exam Vital Signs: Vital Signs: Last Vital Signs Temp 98.7 F 01/19/24 09:33 Pulse 106 H 01/19/24 09:33 Resp 18 01/19/24 09:33 BP 143/85 H 01/19/24 09:33 Pulse Ox 93 12/07/24 09:33 O2 Del Method Room Air 12/07/24 09:33 BMI result Body Mass Index 41.2 vss Appearance: Alert.? Oriented X3.? Head: Normocephalic, atraumatic, no step-offs or deformities Eyes: Pupils equal, round and reactive to light.? CVS: Normal heart rate and rhythm.? Pulses normal.? Respiratory:+ mild respiratory distress, with inspiratory and expiratory wheezes bilaterally. Abdomen: Soft and nontender.? Skin: Skin warm and dry.? Normal skin color.? Normal skin turgor.? Extremities: No lower extremity edema.? No calf ttp. 5/5 strength to bilateral upper and lower extremities Neuro: Oriented X 3.? No motor deficit.? No sensory deficit. CN 2-12 intact Course Reevaluation(s) Reevaluation #1: Patient's CBC with leukocytosis, no left shift I suspect leukocytosis is secondary to steroids which patient is taking at home. Chemistry is still pending. Chest x-ray unremarkable. Time: 08:17 Reevaluation #2: Since patient's symptoms have been ongoing for the past 2 weeks will treat with ceftriaxone. No signs of systemic illness no indication for blood cultures, lactic acid. Time: 08:31 Reevaluation #3: Patient is ambulatory O2 86-87% on room air, patient evidently uncomfortable with ambulation. Due to this, patient will be admitted. Extended respiratory panel ordered and pending. Time: 09:50 Medications Administered Generic Name Dose Route Start Last Admin Trade Name Freq PRN Reason Stop Dose Admin Magnesium Sulfate 2 gm in 50 mls @ 25 mls/hr 01/19/24 07:53 01/19/24 08:06 Magnesium Sulfate/H2o IV 01/19/24 09:52 25 mls/hr ONCE ONE Administration Discontinued Medications Generic Name Dose Route Start Last Admin Trade Name Freq PRN Reason Stop Dose Admin Ceftriaxone Sodium 1 gm 01/19/24 08:19 01/19/24 08:33 Ceftriaxone Sodium 1 Gm Vial IVPUSH 01/19/24 08:20 1 gm ONCE ONE Administration Albuterol Sulfate 2.5 mg/ 0 mg 01/19/24 07:56 01/19/24 08:02 Albuterol/Ipratropium 3 ml INHALE 01/19/24 07:57 1 dose ONCE ONE Administration Methylprednisolone Sodium Succinate 125 mg 01/19/24 07:53 12/07/24 08:06 Methylprednisolone Sod Succ 125 Mg/2 Ml Vial IVPUSH 01/19/24 07:54 125 mg ONCE ONE Administration Medical Decision Making Medical Decision Making [facility] Narrative: 0740 28 year old female presents w/ 2 weeks sob, wheezing, cough, faitgue, malaise PE inspiratory and expiratory wheezing b/l. History and physical exam concerning for viral illness with asthma. Less likely pulmonary embolism however will rule out as she is hypoxic and tachycardic. Unlikely ACS, dissection. Plan- labs, imaging, viral test Differential Diagnosis Differential Diagnoses: The differential diagnosis associated with the presentation includes Admission/Observation Consideration of admission/observation: Escalation of care including admission/observation considered Lab Data [facility] Lab Attestation statement: I reviewed the patient's lab results. 01/19/24 08:04 01/19/24 08:35 Labs: Lab Results 01/19/24 01/19/24 01/19/24 Range/Units 07:20 08:04 08:35 WBC 22.5 H (4.8-10.8) X10*3/uL RBC 5.90 H (4.20-5.50) X10*6/uL Hgb 18.1 H (12.0-16.0) g/dl Hct 51.3 H (37.0-47.0) % MCV 86.9 (80.0-98.0) fL MCH 30.7 (27.0-33.0) pg MCHC 35.3 H (31.0-35.0) g/dl RDW 14.5 (11.0-16.0) % Plt Count 375 (160-400) X10*3/uL MPV 10.7 (9.4-12.3) fL Immature Gran % (Auto) 0.7 H (0.0-0.4) % Neut % (Auto) 69.8 (45-73) % Lymph % (Auto) 18.1 L (20-40) % [place] % (Auto) 5.0 (2-11) % Eos % (Auto) 6.0 H (0-4) % Baso % (Auto) 0.4 (0-2) % Lymph # (Auto) 4.1 (1.2-4.9) X10*3/uL [place] # (Auto) 1.1 (0.1-1.2) X10*3/uL Eos # (Auto) 1.4 H (0.0-0.4) X10*3/uL Baso # (Auto) 0.1 (0.0-0.2) X10*3/uL Abs Immat Gran (auto) 0.16 H (0.00-0.03) X10*3/uL Absolute Neuts (auto) 15.7 H (2.0-8.3) x10*3/uL Absolute Nucleated RBC 0.000 (0.0-0.012) X10*3/uL Nucleated RBC % (auto) 0.0 (0.0-0.2) /100WBC PT 12.8 H (10.9-12.4) SEC INR 1.1 (0.9-1.1) D-Dimer High Sensitivty < 150 NG/ML Hold Blue Top SEE NOTE Sodium 139 (135-145) mmol/L Potassium 4.2 (3.3-5.1) mmol/L Chloride 106 (96-108) mmol/L Carbon Dioxide 22 (22-29) mmol/L Anion Gap 15 (12-20) BUN 14 (9-16) mg/dL Creatinine 0.80 (0.5-1.4) mg/dL Estim Creat Clear Calc 127.3 Estimated GFR > 60 Random Glucose 132 H (60-115) mg/dL Calcium 10.5 H D (8.4-10.2) mg/dL Magnesium 3.4 H (1.6-2.6) mg/dL Total Bilirubin 0.8 (0.0-1.0) mg/dL AST 21 (5-31) U/L ALT 26 (0-31) U/L Alkaline Phosphatase 116 (39-117) U/L Total Protein 8.2 H (6.5-8.0) g/dL Albumin 4.5 (3.5-5.0) g/dL Influenza Type A (PCR) NEGATIVE (Negative) Influenza Type B (PCR) NEGATIVE (Negative) RSV RNA Qual (PCR) NEGATIVE (Negative) SARS-CoV-2 RNA (RT-PCR) NEGATIVE (Negative) Independent Interpretation I performed an independent interpretation of an: EKG (Vent. Rate : 109 BPM Atrial Rate : 109 BPM P-R Int : 140 ms QRS Dur : 066 ms QT Int : 328 ms P-R-T Axes : 077 081 064 degrees QTc Int : 441 ms Sinus tachycardia Right atrial enlargement Borderline ECG When compared with ECG of 07-JAN-2024 04:35, No significant change w) and Plain X-Ray (XR/XR chest 2V IMPRESSION: Unremarkable chest examination.) Radiology Impression Discussion of test interpretation with radiology: I have reviewed the radiologist's reading. External Record Review External record reviewed: Office record, Outpatient record, Prior outpatient labs and Prior outpatient radiology Critical Care Time Critical Care Time Critical Care Time: Yes Total Critical Care Time: 35 Attestation: I attest to this time spent taking care of the patient, obtaining history, physical, reviewing labs, imaging, treatment of patients condition +/- specialist/hospitalist consult Discharge Plan Discharge Clinical Impression: Asthma exacerbation, Viral infection, Bronchitis Patient Disposition: Still a Patient Prescriptions: No Action albuterol sulfate 90 mcg/actuation HFA aerosol inhaler 1 inh inhalation QID PRN (Reason: shortness of breath or wheezing) Qty: 6.7 0RF azithromycin [Zithromax Z-José Miguel] 250 mg tablet See Rx Instructions .ROUTE .COMPLEX Qty: 6 0RF Rx Instructions: take 500 mg today (day 1), then 250 mg for 4 days (days 2-5) prednisone 20 mg tablet 40 mg PO DAILY Qty: 10 0RF hydrocodone-homatropine [Hycodan (with homatropine)] 5-1.5 mg/5 mL syrup 5 ml PO Q6H PRN (Reason: cough) Qty: 60 0RF albuterol sulfate 0.63 mg/3 mL solution for nebulization 0.63 mg inhalation QID PRN (Reason: shortness of breath or wheezing) Qty: 75 0RF meloxicam 15 mg tablet 15 mg PO DAILY Qty: 10 0RF cyclobenzaprine 10 mg tablet 10 mg PO TID PRN (Reason: muscle spasm) Qty: 10 0RF prednisone 50 mg tablet 50 mg PO DAILY 5 Days Qty: 5 0RF azithromycin 250 mg tablet 250 mg PO DAILY 4 Days Qty: 4 0RF Rx Instructions: start on day 2 of therapy albuterol sulfate 2.5 mg /3 mL (0.083 %) solution for nebulization 2.5 mg inhalation Q4-6H PRN (Reason: shortness of breath or wheezing) Qty: 90 0RF albuterol sulfate 90 mcg/actuation HFA aerosol inhaler 2 puff inhalation Q4-6H PRN (Reason: shortness of breath or wheezing) Qty: 8.5 0RF prednisone 50 mg tablet 50 mg PO DAILY 4 Days Qty: 4 0RF prednisone 20 mg tablet 40 mg PO DAILY Qty: 10 0RF benzonatate 100 mg capsule 100 mg PO TID PRN (Reason: cough) Qty: 14 0RF albuterol sulfate 90 mcg/actuation HFA aerosol inhaler 2 puff inhalation Q4-6H PRN (Reason: shortness of breath or wheezing) Qty: 6.7 0RF albuterol sulfate 2.5 mg /3 mL (0.083 %) solution for nebulization 2.5 mg inhalation Q4H PRN (Reason: shortness of breath or wheezing) 30 Days Qty: 180 11RF prednisone 20 mg tablet 20 mg PO DAILY 10 Days Qty: 15 0RF Rx Instructions: Take 2 tabs daily x 5 days, then 1 tablet daily x 5 days doxycycline hyclate 100 mg capsule 100 mg PO BID 10 Days Qty: 20 0RF Print Language: Yoruba
--- NOTE | 2024-01-19 07:37 | PC.NURSE ---
pt to xray at this time. strong steady gait w/o use of assistive devices.
--- NOTE | 2024-01-19 07:47 | ECG_ITS ---
Test Reason : SOB Blood Pressure : / mmHG Vent. Rate : 109 BPM Atrial Rate : 109 BPM P-R Int : 140 ms QRS Dur : 066 ms QT Int : 328 ms P-R-T Axes : 077 081 064 degrees QTc Int : 441 ms Sinus tachycardia Right atrial enlargement Borderline ECG When compared with ECG of 07-JAN-2024 04:35, No significant change was found Referred By: Jarvis Carrera Electronically Signed By:Juliocesar Martínez
[2024-01-19] MEDS: Albuterol Sulfate 2.5 MG, Albuterol/Iprat 2.5/0.5MG 3 ML 3 ML INHALE (08:02)
[2024-01-19 08:05] LABS: Influenza A PCR NEGATIVE (Negative); Influenza B PCR NEGATIVE (Negative); Resp Syncy Virus RNA Qual PCR NEGATIVE (Negative); SARS COV2 PCR INHOUSE NEGATIVE (Negative)
[2024-01-19] MEDS: Magnesium Sulfate/H2O 2 GM/50 ML PIGGYBACK IV (08:06)
[2024-01-19] MEDS: methylPREDNISolone Sod Succ 125 MG/2 ML VIAL IVPUSH (08:06)
[2024-01-19 08:08] LABS: MANUAL DIFF FLAG NO
--- NOTE | 2024-01-19 08:10 | PC.NURSE ---
20gIV placed in the right AC - labs obtained/sent to lab. ekg performed by tech. pt receiving breathing treatment via RT at this time.
[2024-01-19 08:11] LABS: Basophils Absolute Auto 0.1 X10*3/uL (0.0-0.2); Basophils Percent Auto 0.4 % (0-2); Eosinophils Absolute Auto 1.4 X10*3/uL (0.0-0.4); Hematocrit 51.3 % (37.0-47.0); Hemoglobin 18.1 g/dl (12.0-16.0); Imm Gran Abs Auto 0.16 X10*3/uL (0.00-0.03); Imm Gran Pct Auto 0.7 % (0.0-0.4); Lymphocytes Absolute Auto 4.1 X10*3/uL (1.2-4.9); Lymphocytes Percent Auto 18.1 % (20-40); Mean Corpuscular HGB Conc 35.3 g/dl (31.0-35.0); Mean Corpuscular Hemoglobin 30.7 pg (27.0-33.0); Mean Corpuscular Volume 86.9 fL (80.0-98.0); Mean Platelet Volume 10.7 fL (9.4-12.3); Monocytes Absolute Auto 1.1 X10*3/uL (0.1-1.2); Neutrophils Absolute Auto 15.7 x10*3/uL (2.0-8.3); Neutrophils Percent Auto 69.8 % (45-73); Platelet Count 375 X10*3/uL (160-400); Red Cell Distribution Width 14.5 % (11.0-16.0); White Blood Count 22.5 X10*3/uL (4.8-10.8)
--- NOTE | 2024-01-19 08:27 | PC.NURSE ---
ambulation trial performed by tech. SPO2 ranged between 87%-90% on RA. pt reports increased sob. wob noted. provider notified/aware of results.
[2024-01-19] MEDS: cefTRIAXone sodium 1 GM VIAL IVPUSH (08:33)
[2024-01-19 08:35] LABS: INTERNATIONAL NORM RATIO 1.1 (0.9-1.1); Prothrombin Time 12.8 SEC (10.9-12.4)
[2024-01-19 08:39] LABS: D Dimer High Sensitivity < 150 NG/ML
[2024-01-19 09:05] LABS: Alanine Aminotransferase 26 U/L (0-31); Albumin Level 4.5 g/dL (3.5-5.0); Alkaline Phosphatase 116 U/L (39-117); Anion Gap 15 (12-20); Aspartate Amino Transferase 21 U/L (5-31); Bilirubin Total 0.8 mg/dL (0.0-1.0); Blood Urea Nitrogen 14 mg/dL (9-16); Calcium 10.5 mg/dL (8.4-10.2); Carbon Dioxide 22 mmol/L (22-29); Chloride 106 mmol/L (96-108); Creatinine Clr Calc Pharmacy 127.3; Estimated Glomerular Filt Rate > 60; Glucose Random 132 mg/dL (60-115); Magnesium 3.4 mg/dL (1.6-2.6); Potassium 4.2 mmol/L (3.3-5.1); Sodium 139 mmol/L (135-145); Total Protein 8.2 g/dL (6.5-8.0)
--- NOTE | 2024-01-19 10:50 | P.HPHOSP_ITS ---
History of Present Illness Date of Service: 01/19/24 Chief Complaint: sob 28F PMH mild intermittent asthma, obesity, presented with sob. Patient states that his shortness breath began several days into a [place] cruise about 2 weeks prior to presentation. Was also associated with dry cough, wheezing, fatigue. Denies fevers, chills. Shortness breath is worse on exertion and at night. Was given prednisone and initially felt better but became short of breath again after discontinuing. In ED chest x-ray unremarkable, patient desatted to 87 on room air while ambulating. Recovered at rest. Review of Systems 2 Review of Systems: Yes all other systems are reviewed and are negative [facility] Medical History Cough Asthma exacerbation No known health problems Social History Substance Use Type: Marijuana Advance Directives: No Advance Directives Information Provided: No Do you have a plan to hurt others: No Plan Meds Allergies Allergy/AdvReac Type Severity Reaction Status Date / Time No Known Allergies Allergy Verified 01/19/24 07:00 [No Known Allergies*] Active Medications: Current Medications Albuterol/Ipratropium (Albuterol/Iprat 2.5/0.5mg 3 Ml Ampul.Neb) 3 ml INHALE RQ4H WHILE AWAKE PRN PRN Reason: sob Albuterol/Ipratropium (Albuterol/Iprat 2.5/0.5mg 3 Ml Ampul.Neb) 3 ml INHALE RQ4H WHILE AWAKE [facility] Azithromycin (Azithromycin 500 Mg Tablet) 500 mg PO Q24H [facility] Fluticasone/Vilanterol (Fluticasone/Vilanterol 100/25 Blst.W.Dev) 1 puff INHALE RDAILY [facility] Methylprednisolone Sodium Succinate (Methylprednisolone Sod Succ 40 Mg/Ml Vial) 30 mg IVPUSH Q12H [facility] Physical Exam 2 Vital Signs and Narrative: Vital Signs: Last Vital Signs Temp 98.7 F 01/19/24 09:33 Pulse 106 H 01/19/24 09:33 Resp 18 01/19/24 09:33 BP 143/85 H 01/19/24 09:33 Pulse Ox 93 01/19/24 09:33 O2 Del Method Room Air 01/19/24 09:33 BMI result Body Mass Index 41.2 General: AO X 3, no acute distress Resp: Wheezing bilateral, no accessory muscles used CVS: S1,S2,RRR GI: soft, non tender, non distended Neuro: motor grossly intact, alert Psych: appropriate affect, appropriate insight Results Labs 01/19/24 08:04 01/19/24 08:35 Labs: Laboratory Results - last 24 hr 01/19/24 01/19/24 01/19/24 07:20 08:04 08:35 MCV 86.9 MCH 30.7 MCHC 35.3 H RDW 14.5 Plt Count 375 MPV 10.7 Immature Gran % (Auto) 0.7 H Neut % (Auto) 69.8 Lymph % (Auto) 18.1 L [place] % (Auto) 5.0 Eos % (Auto) 6.0 H Baso % (Auto) 0.4 Lymph # (Auto) 4.1 [place] # (Auto) 1.1 Eos # (Auto) 1.4 H Baso # (Auto) 0.1 Abs Immat Gran (auto) 0.16 H Absolute Neuts (auto) 15.7 H Absolute Nucleated RBC 0.000 Nucleated RBC % (auto) 0.0 PT 12.8 H INR 1.1 D-Dimer High Sensitivty < 150 Hold Blue Top SEE NOTE Anion Gap 15 Estim Creat Clear Calc 127.3 Estimated GFR > 60 Random Glucose 132 H Calcium 10.5 H D Magnesium 3.4 H Total Bilirubin 0.8 AST 21 ALT 26 Alkaline Phosphatase 116 Total Protein 8.2 H Albumin 4.5 Influenza Type A (PCR) NEGATIVE Influenza Type B (PCR) NEGATIVE RSV RNA Qual (PCR) NEGATIVE SARS-CoV-2 RNA (RT-PCR) NEGATIVE Imaging Radiologist's Impressions: Impressions Chest X-Ray 01/19/24 07:30 IMPRESSION: Unremarkable chest examination. Electronically signed by: Deion Cox MD 01/19/2024 07:41 AM [facility] Assessment and Plan (1) Asthma exacerbation: Status: Acute Plan 28F PMH mild intermittent asthma, obesity, presented with sob Ambulatory hypoxia due to mild intermittent asthma with acute decompensation Likely triggered by viral illness IV steroids, DuoNebs, azithromycin Will start inhaled steroid Obesity Weight loss is recommended Low risk for DVT Full code Quality Stroke Does the patient have a stroke diagnosis?: No VTE Prior VTE?: No VTE Risk Level:: Medical - low VTE Device Contraindication: Treatment Not Indicated VTE Drug Contraindication: Treatment Not Indicated
[2024-01-19] MEDS: Albuterol/Iprat 2.5/0.5MG 3 ML AMPUL.NEB INHALE ×3 (11:44→20:00)
[2024-01-19] MEDS: Azithromycin 500 MG TABLET PO (11:54)
--- NOTE | 2024-01-19 11:59 | PC.NURSE ---
pt verbalizing discomfort in IV access in right AC. new 20gIV placed in the left outer forearm - patent/intact. pt currently receiving breathing treatment via RT at this time. waiting to be transported upstairs. plan of care ongoing.
--- NOTE | 2024-01-19 12:04 | PHA.MEDREC ---
Pharmacy Consult ? Medication Reconciliation Pharmacy has completed the medication reconciliation. Patient confirmed to have finished the course of prednisone and no longer taking Benzonatate
[2024-01-19 14:36] LABS: Adenovirus PCR Not Detected (Not Detect.); Bordetella parapertussis PCR Not Detected (Not Detect.); Bordetella pertussis PCR Not Detected (Not Detect.); Chlamydia pneumoniae PCR Not Detected (Not Detect.); Coronavirus 229E PCR Not Detected (Not Detect.); Coronavirus HKU1 PCR Not Detected (Not Detect.); Coronavirus NL63 PCR Not Detected (Not Detect.); Coronavirus OC43 PCR Not Detected (Not Detect.); Human metapneumovirus PCR Not Detected (Not Detect.); Influenza A PCR Not Detected (Not Detect.); Influenza B PCR Not Detected (Not Detect.); Mycoplasma pneumoniae PCR Not Detected (Not Detect.); Parainfluenza 1 PCR Not Detected (Not Detect.); Parainfluenza 2 PCR Not Detected (Not Detect.); Parainfluenza 3 PCR Not Detected (Not Detect.); Parainfluenza 4 PCR Not Detected (Not Detect.); RSV PCR Not Detected (Not Detect.); Rhino/Enterovirus PCR Not Detected (Not Detect.)
[2024-01-19 15:07] LABS: SARS-CoV-2 PCR Not Detected (Not Detect.)
[2024-01-19] MEDS: 0.9 % Sodium Chloride Flush 3 ML SYRINGE IVFLUSH ×2 (15:49→21:15)
[2024-01-19] MEDS: methylPREDNISolone Sod Succ 40 MG/ML VIAL 30 MG IVPUSH (21:12)
[2024-01-20] VITALS (8 sets, daily range): BP systolic 137–164; BP diastolic 68–80; PULSE 85–112; RESP 16–20; TEMP 36.1–36.4; O2SAT 92–95
[2024-01-20 07:15] LABS: Hematocrit 47.2 % (37.0-47.0); Hemoglobin 16.7 g/dl (12.0-16.0); Mean Corpuscular HGB Conc 35.4 g/dl (31.0-35.0); Mean Corpuscular Hemoglobin 30.9 pg (27.0-33.0); Mean Corpuscular Volume 87.4 fL (80.0-98.0); Mean Platelet Volume 10.9 fL (9.4-12.3); Platelet Count 422 X10*3/uL (160-400); Red Cell Distribution Width 14.7 % (11.0-16.0)
[2024-01-20 07:24] LABS: White Blood Count 30.8 X10*3/uL (4.8-10.8)
[2024-01-20 07:36] LABS: Anion Gap 14 (12-20); Blood Urea Nitrogen 14 mg/dL (9-16); Calcium 10.2 mg/dL (8.4-10.2); Carbon Dioxide 21 mmol/L (22-29); Chloride 104 mmol/L (96-108); Creatinine Clr Calc Pharmacy 135.8; Estimated Glomerular Filt Rate > 60; Glucose Random 159 mg/dL (60-115); Potassium 4.8 mmol/L (3.3-5.1); Sodium 134 mmol/L (135-145)
--- NOTE | 2024-01-20 09:10 | HO.PM.IMPN ---
Subjective Subjective Date of Service: 01/20/24 Interval History: overall improved Physical Exam Vital Signs: Vital Signs: Last Vital Signs Temp 97.3 F 01/20/24 07:57 Pulse 85 01/20/24 07:57 Resp 18 01/20/24 07:57 BP 137/80 01/20/24 07:57 Pulse Ox 92 01/20/24 07:57 O2 Del Method Room Air 01/20/24 07:57 BMI result Body Mass Index 41.2 General: AO X 3, no acute distress Resp: mild end exp wheeze bilateral, no accessory muscles used CVS: S1,S2,RRR GI: soft, non tender, non distended Neuro: motor grossly intact, alert Psych: appropriate affect, appropriate insight Objective Data Active Medications Acetaminophen (Acetaminophen 325 Mg Tablet) 650 mg PO Q6H PRN PRN Reason: Pain, Mild (Pain Scale 1-3), fever or headache Albuterol/Ipratropium (Albuterol/Iprat 2.5/0.5mg 3 Ml Ampul.Neb) 3 ml INHALE RQ4H WHILE AWAKE PRN PRN Reason: SHORTNESS OF BREATH Albuterol/Ipratropium (Albuterol/Iprat 2.5/0.5mg 3 Ml Ampul.Neb) 3 ml INHALE RQ4H WHILE AWAKE [facility] Last Admin: 01/20/24 07:51 Dose: Not Given Documented By: PETE Non-Admin Reason: Patient Refused Azithromycin (Azithromycin 500 Mg Tablet) 500 mg PO Q24H [facility] Last Admin: 01/19/24 11:54 Dose: 500 mg Documented By: SANTOS Calcium Carbonate (Calcium Carbonate 750 Mg Tab.Chew) 750 mg PO Q4H PRN PRN Reason: Heartburn Fluticasone/Vilanterol (Fluticasone/Vilanterol 100/25 Blst.W.Dev) 1 puff INHALE RDAILY [facility] Last Admin: 01/20/24 07:51 Dose: Not Given Documented By: PETE Non-Admin Reason: Patient Refused Magnesium Hydroxide (Milk Of Magnesia 30 Ml Oral.Susp) 30 ml PO DAILY PRN PRN Reason: Constipation Melatonin (Melatonin 3 Mg Tablet) 6 mg PO BEDTIME PRN PRN Reason: Insomnia Methylprednisolone Sodium Succinate (Methylprednisolone Sod Succ 40 Mg/Ml Vial) 30 mg IVPUSH Q12H [facility] Last Admin: 01/19/24 21:12 Dose: 30 mg Documented By: BRANDY Sodium Chloride (0.9 % Sodium Chloride Flush 3 Ml Syringe) 3 ml IVFLUSH QSHIFT [facility] Last Admin: 01/19/24 21:15 Dose: 3 ml Documented By: BRANDY Labs 01/20/24 06:39 01/20/24 06:39 Labs: Laboratory Results - last 24 hr 01/19/24 01/20/24 10:05 06:39 MCV 87.4 MCH 30.9 MCHC 35.4 H RDW 14.7 Plt Count 422 H MPV 10.9 Absolute Nucleated RBC 0.000 Nucleated RBC % (auto) 0.0 Anion Gap 14 Estim Creat Clear Calc 135.8 Estimated GFR > 60 Random Glucose 159 H Calcium 10.2 Respiratory Panel Severino See Note Adenovirus (Rapid PCR) Not Detected B.pert (TEM-PCR) Not Detected B.parapertussis DNA PCR Not Detected C. pneumoniae DNA (PCR) Not Detected Coronavirus OC43 (PCR) Not Detected Coronavirus HKU1 (PCR) Not Detected Coronavirus 229E (PCR) Not Detected Coronavirus NL63 (PCR) Not Detected Human Metapneumovir PCR Not Detected Influenza A (RT-PCR) Not Detected Influenza B (RT-PCR) Not Detected M. pneumoniae (PCR) Not Detected Parainfluenza 1 (PCR) Not Detected Parainfluenza 2 (PCR) Not Detected Parainfluenza 3 (PCR) Not Detected Parainfluenza 4 (PCR) Not Detected RSV (PCR) Not Detected Entero/Rhino (PCR) Not Detected SARS-CoV-2 RNA (RT-PCR) Not Detected Assessment and Plan (1) Asthma exacerbation: Status: Acute Plan 28F PMH mild intermittent asthma, obesity, presented with sob Ambulatory hypoxia due to mild intermittent asthma with acute decompensation Likely triggered by viral illness resp viral panel negative continue IV steroids, DuoNebs, azithromycin inhaled steroid leukocytosis due to steroids, not sepsis Obesity Weight loss is recommended Low risk for DVT Full code reason for continued hospitalization:sob Quality Stroke Does the patient have a stroke diagnosis?: No VTE Prior VTE?: No VTE Risk Level:: Medical - low VTE Device Contraindication: Treatment Not Indicated VTE Drug Contraindication: Treatment Not Indicated
[2024-01-20] MEDS: methylPREDNISolone Sod Succ 40 MG/ML VIAL 30 MG IVPUSH ×2 (09:23→20:45)
[2024-01-20] MEDS: 0.9 % Sodium Chloride Flush 3 ML SYRINGE IVFLUSH ×3 (09:24→20:49)
[2024-01-20] MEDS: Albuterol/Iprat 2.5/0.5MG 3 ML AMPUL.NEB INHALE ×3 (10:05→20:16)
--- NOTE | 2024-01-20 11:33 | MHC.CM.PN ---
pt lives w/boyfriend is independent has a ride home dc plan home no servies
[2024-01-20] MEDS: Azithromycin 500 MG TABLET PO (12:44)
[2024-01-20] MEDS: Calcium Carbonate 750 MG TAB.CHEW PO (15:18)
[2024-01-20] MEDS: Acetaminophen 325 MG TABLET 650 MG PO (16:22)
[2024-01-21 03:33] VITALS: BP 135/74; PULSE 90; RESP 16; TEMP 36.5; O2SAT 94
[2024-01-21 06:34] LABS: Hematocrit 44.1 % (37.0-47.0); Hemoglobin 15.3 g/dl (12.0-16.0); Mean Corpuscular HGB Conc 34.7 g/dl (31.0-35.0); Mean Corpuscular Hemoglobin 30.8 pg (27.0-33.0); Mean Corpuscular Volume 88.7 fL (80.0-98.0); Platelet Count 407 X10*3/uL (160-400); Red Blood Count 4.97 X10*6/uL (4.20-5.50); Red Cell Distribution Width 14.8 % (11.0-16.0); White Blood Count 27.9 X10*3/uL (4.8-10.8)
[2024-01-21 07:03] LABS: Anion Gap 15 (12-20); Blood Urea Nitrogen 18 mg/dL (9-16); Calcium 9.6 mg/dL (8.4-10.2); Carbon Dioxide 23 mmol/L (22-29); Chloride 103 mmol/L (96-108); Creatinine Clr Calc Pharmacy 121.2; Estimated Glomerular Filt Rate > 60; Glucose Random 144 mg/dL (60-115); Potassium 4.5 mmol/L (3.3-5.1); Sodium 136 mmol/L (135-145)
[2024-01-21] MEDS: Albuterol/Iprat 2.5/0.5MG 3 ML AMPUL.NEB INHALE (07:53)
[2024-01-21] MEDS: Fluticasone/Vilanterol 100/25 BLST.W.DEV 1 PUFF INHALE (07:53)
[2024-01-21 07:54] VITALS: PULSE 89; RESP 16; O2SAT 90
[2024-01-21 08:00] VITALS: BP 137/68; PULSE 77; RESP 16; TEMP 36.6; O2SAT 92
[2024-01-21] MEDS: 0.9 % Sodium Chloride Flush 3 ML SYRINGE IVFLUSH (08:31)
[2024-01-21] MEDS: methylPREDNISolone Sod Succ 40 MG/ML VIAL 30 MG IVPUSH (08:31)
--- NOTE | 2024-01-21 09:00 | P.DS_ITS ---
DS: Providers Provider Date of Service: 01/21/24 Date of admission: 01/19/24 10:48 Date of discharge: 01/21/24 Primary care physician: Candis Haque MD DS: Diagnosis Discharge Diagnosis (1) Asthma exacerbation: Status: Acute DS: Summary Hospital Course Hospital Course: from initial hpi: 28F PMH mild intermittent asthma, obesity, presented with sob. Patient states that his shortness breath began several days into a [place] cruise about 2 w eeks prior to presentation. Was also associated with dry cough, wheezing, fatigue. Denies fevers, chills. Shortness breath is worse on exertion and at night. Was given prednisone and initially felt better but became short of breath again after discontinuing. In ED chest x-ray unremarkable, patient desatted to 87 on room air while ambulating. Recovered at rest. hospital course: Patient was admitted for ambulatory hypoxia due to mild intermittent asthma with acute decompensation. Respiratory viral panel was negative. Was treated with IV steroids, DuoNebs, azithromycin. Also started on an inhaled long-acting beta agonist and steroid. Noted to have significant leukocytosis though this is from steroids and not sepsis. Symptoms improved. Wheezing resolved. Patient will be discharged home on prednisone taper and 3 more days of azithromycin. She was instructed to monitor her environment for potential allergens and triggers such as rugs in her apartment and avoid these. For obesity weight loss is recommended. Time Attestation Discharge Coordination Time (in mins): 34 Quality: Safe Use of Opioids Does Pt have an Active Cancer Diagnosis on the Problem List?: No Quality: Stroke Does the patient have a stroke diagnosis?: No Physical Exam Vital Signs: Vital Signs: Last Vital Signs Temp 97.8 F 01/21/24 08:00 Pulse 77 01/21/24 08:00 Resp 16 01/21/24 08:00 BP 137/68 01/21/24 08:00 Pulse Ox 92 01/21/24 08:00 O2 Del Method Room Air 01/21/24 08:00 BMI result Body Mass Index 41.2 General: AO X 3, no acute distress Resp: CTA bilateral, no accessory muscles used CVS: S1,S2,RRR GI: soft, non tender, non distended Neuro: motor grossly intact, alert Psych: appropriate affect, appropriate insight DS: Data Data Completed and Pending Labs on day of discharge: Laboratory Results - last 24 hr 01/21/24 05:31 WBC 27.9 H RBC 4.97 Hgb 15.3 Hct 44.1 MCV 88.7 MCH 30.8 MCHC 34.7 RDW 14.8 Plt Count 407 H MPV 11.0 Absolute Nucleated RBC 0.000 Nucleated RBC % (auto) 0.0 Sodium 136 Potassium 4.5 Chloride 103 Carbon Dioxide 23 Anion Gap 15 BUN 18 H Creatinine 0.84 Estim Creat Clear Calc 121.2 Estimated GFR > 60 Random Glucose 144 H Calcium 9.6 Discharge Plan Discharge Anticipated Discharge Date/Time: 01/21/24 08:57 Patient Disposition: Home, Self-Care Discharge Diagnosis: asthma Referrals: aCndis Haque MD [Primary Care Provider] - 1 Week Discharge Medications: New azithromycin 500 mg Tablet 500 mg PO Q24H Qty: 3 0RF fluticasone furoate-vilanterol [Breo Ellipta] 100-25 mcg/dose Blister With Device 1 inh inhalation RDAILY 90 Days Qty: 60 0RF prednisone 20 mg tablet 40 mg PO DAILY Qty: 15 0RF Rx Instructions: 40mg daily for 5 days, then 20mg daily for 5 days Continued ipratropium-albuterol 0.5 mg-3 mg(2.5 mg base)/3 mL solution for nebulization 3 ml inhalation QID albuterol sulfate [Ventolin HFA] 90 mcg/actuation HFA aerosol inhaler 2 puff inhalation Q4-6H PRN (Reason: wheezing) Discharge Orders: Discharge Order (Routine); Ordered 01/21/24 Ordered By: Brandon Sheppard Diet: Advance to usual diet Activity on Discharge: As tolerated Stand Alone Forms: Patient Portal Discharge page Print Language: [place] Care Plan Goals: manage asthma Health Concerns: asthma Plan of Treatment: prednisone taper, 3 more days of azithromycin try to figure out triggering allergen (such as rugs) and avoid Assessment: see above
[2024-01-21] MEDS: Azithromycin 500 MG TABLET PO (09:14)
--- NOTE | 2024-01-21 09:42 | MHC.CM.PN ---
PATIENT MEDICALLY CLEARED FOR [place] HOME SELF CARE VIA PRIVATE TRANSPORT
== END 2024-01-21 10:33 | disposition home or self-care (01) ==
LOC: HO.ED 08:19 → HO.EDOVER 10:53 → HO.S3 11:32
PROVIDERS: Physician Assistant; Admitting Provider Internal Medicine; Emergency Provider Emergency Medicine Emergency Medical Services; PCP Internal Medicine; Visit Provider Internal Medicine
DX: J45.21 Mild intermittent asthma with (acute) exacerbation (principal); R06.02 Shortness of breath; R05.9 Cough, unspecified; R53.83 Other fatigue; Z03.818 Encounter for observation for suspected exposure to other biological agents ruled out
CPT/HCPCS: 0241U; 36415; 71046; 80048; 80053; 83735; 85025; 85027; 85379; 85610; 87633; 93005; 94640; 96365; 96366; 96375; 96376; 99221; 99285; J0696; J2919; J3475

== ENCOUNTER → 2024-01-19 07:47 | Outpatient (BNV) | payer OTHER, SELFPAY | PROVIDERS: Admitting Provider Internal Medicine; Emergency Provider Emergency Medicine Emergency Medical Services; PCP Internal Medicine; Visit Provider Internal Medicine Cardiovascular Disease | DX: R06.02 Shortness of breath (principal) | CPT/HCPCS: 93010 ==

== ENCOUNTER → 2024-01-19 10:48 | Outpatient (BNV) | payer OTHER, SELFPAY | PROVIDERS: Admitting Provider Internal Medicine; Emergency Provider Emergency Medicine Emergency Medical Services; PCP Internal Medicine; Visit Provider Internal Medicine | DX: J45.901 Unspecified asthma with (acute) exacerbation (principal) | CPT/HCPCS: 99222; 99232; 99239 ==